=== PATIENT | female | born 1970 | race Caucasian/White ===

== ENCOUNTER → 2018-11-25 | Outpatient (CLI) | payer BC ==
--- NOTE | 2018-12-03 09:48 | MM ---
Reason for exam: screening (asymptomatic). Last mammogram was performed 1 year and 3 months ago. Physical Findings: A clinical breast exam by your physician is recommended on an annual basis and results should be correlated with mammographic findings. MG Screening Mammo w CAD Bilateral CC and MLO view(s) were taken. Prior study comparison: August 27, 2017, mammogram, performed at [place]. August 26, 2016, mammogram, performed at [place]. The breast tissue is heterogeneously dense. This may lower the sensitivity of mammography. New nodule upper outer right breast 6 cm from nipple. ASSESSMENT: Incomplete: need additional imaging evaluation, BI-RAD 0 RECOMMENDATION: Special view mammogram and ultrasound of the right breast. [facility] will attempt to contact patient to return for supplemental views and ultrasound.
== END | disposition home or self-care (01) ==
LOC: RADMAMWWP 09:23
PROVIDERS: ATTEND Family Medicine
DX: Z12.31 Encounter for screening mammogram for malignant neoplasm of breast (principal)
CPT/HCPCS: 77067

== ENCOUNTER → 2018-12-16 | Outpatient (CLI) | payer BC ==
--- NOTE | 2018-12-17 10:39 | MM ---
Reason for exam: additional evaluation requested from abnormal screening. Last mammogram was performed 1 month ago. Physical Findings: Nurse did not find any significant physical abnormalities on exam. MG Work Up Mamm w CAD RT CC and MLO view(s) were taken of the right breast. Prior study comparison: November 25, 2018, bilateral MG screening mammo w CAD. August 27, 2017, mammogram, performed at [place]. The breast tissue is heterogeneously dense. This may lower the sensitivity of mammography. 12 o'clock focal asymmetry partially disperses. Ultrasound recommended. These results were verbally communicated with the patient and result sheet given to the patient on 12/16/18. ASSESSMENT: Incomplete: need additional imaging evaluation, BI-RAD 0 RECOMMENDATION: Ultrasound of the right breast.
--- NOTE | 2018-12-17 10:40 | USB ---
Reason for exam: additional evaluation requested from abnormal screening. US Breast Workup Limited RT Right limited breast ultrasound including focal area of concern, retroareolar and axilla demonstrates a 0.2 x 0.2 x 0.3cm lesion too small to characterize at 2 o'clock, likely tiny cyst. Scanned 11-3 o'clock. No other solid or cystic lesion seen. These results were verbally communicated with the patient and result sheet given to the patient on 12/16/18. ASSESSMENT: Probably benign, BI-RAD 3 RECOMMENDATION: Follow-up diagnostic mammogram of the right breast in 6 months.
== END ==
LOC: RADMAMWWP 14:18
PROVIDERS: ATTEND Family Medicine
DX: R92.8 Other abnormal and inconclusive findings on diagnostic imaging of breast (principal)
CPT/HCPCS: 77065

== ENCOUNTER → 2021-05-13 | Outpatient (CLI) | payer BC ==
[2021-05-13 09:38] VITALS: BP 149/96; PULSE 93; RESP 18; TEMP 98
--- NOTE | 2021-05-13 09:44 | P.CONS ---
History of Present Illness - Reason for Consult Consult date: 05/13/21 - Chief Complaint Lower back and legs pain - History of Present Illness This is a 51-year-old lady with history of low back pain with radiation to the left knee level without paresthesia in the lower extremities. The patient had similar pain a few years ago for which she received lumbar epidural steroid injection which helped her significantly. She also received left greater trochanter bursa steroid injection previously. She has been complaining of this pain for about one year now as she states. The pain gets worse with standing or walking for too long. It improves by laying down in bed. 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 She denies any weakness in the lower extremities or any bowel or bladder dysfunction. Past Medical History Past Medical History: Hypertension Additional Past Medical History / Comment(s): BACK PAIN. SEASONAL ALLERGIES History of Any Multi-Drug Resistant Organisms: None Reported Past Surgical History: Bladder Surgery, Hernia Repair, Orthopedic Surgery Additional Past Surgical History / Comment(s): FUSION C5-C6. D & C. BLADDER SX X 2. BILAT KNEE SX. EPIDURAL SHOTS Past Anesthesia/Blood Transfusion Reactions: Postoperative Nausea & Vomiting (PONV) Past Psychological History: No Psychological Hx Reported Smoking Status: Never smoker Past Alcohol Use History: Rare Past Drug Use History: None Reported - Past Family History Mother Family Medical History: Deep Vein Thrombosis (DVT) Additional Family Medical History / Comment(s): SUPERFICIAL CLOT IN LEG Medications and Allergies Home Medications Medication Instructions Recorded Confirmed Type Ibuprofen [Motrin Ib] 600 - 800 mg PO DAILY PRN 05/08/21 05/08/21 History Loratadine [Claritin] 10 mg PO DAILY 05/08/21 05/08/21 History Losartan Potassium 100 mg PO DAILY 05/08/21 05/08/21 History Phentermine HCl 37.5 mg PO AC-BRKFST 05/08/21 05/08/21 History cloNIDine HCL 0.1 mg PO DAILY 05/08/21 05/08/21 History Allergies Allergy/AdvReac Type Severity Reaction Status Date / Time No Known Allergies Allergy Verified 05/08/21 12:50 Physical Exam - Constitutional General appearance: obese - EENT Eyes: PERRLA - Neurologic Neuro exam of the lower extremities showed normal and symmetrical muscle strength and normal and symmetrical knee reflex is but absent ankle reflex bilaterally. Straight leg raising test negative bilaterally. José Miguel's test is negative on the left side. Facet loading test is negative lumbar area Neurologic: CNII-XII intact - Psychiatric Psychiatric: A&O x's 3, appropriate affect, intact judgment & insight Results Results: The lumbar spine MRI showed severe stenosis at L3 4 and L4-L5 levels Assessment and Plan Plan: This is a 51-year-old lady with what seems to be severe lumbar stenosis at the L3 4 and L4 5 levels .her symptoms most likely is coming from the L3 4 level at this point since her pain starts of the left knee level. The patient may benefit from getting lumbar epidural steroid injection at the L3 4 level in the left paramedian approach under fluoroscopic guidance. The procedure was explained to the patient and she was agreeable to it. Patient prefers to have this procedure under local anesthesia only. I thank you for the referral
== END ==
LOC: PNWHC3 09:08
PROVIDERS: ATTEND Anesthesiology
DX: M48.061 Spinal stenosis, lumbar region without neurogenic claudication (principal); I10 Essential (primary) hypertension; Z79.899 Other long term (current) drug therapy
CPT/HCPCS: 99211

== ENCOUNTER 2021-07-02 06:18 | Day surgery (SDC) | payer BC ==
[2021-06-28 11:26] VITALS: BMI 27.4
[~2021-07-02 06:18] MED LIST: LACTATED RINGERS 1,000 ML IV SCH
[2021-07-02 06:39] VITALS: TEMP 97.2
[2021-07-02] MEDS ORDERED: IOPAMIDOL M200 10 ML VIAL ONE (06:49)
[2021-07-02] MEDS ORDERED: methylPREDNISolone ACETATE 40 MG/ML 1 ML VIAL ONE (06:49)
--- NOTE | 2021-07-02 07:05 | P.PCN ---
Date of Procedure: 07/02/21 Procedure(s) Performed: PREOPERATIVE DIAGNOSIS: 1- Lumbar Degenerative Disc Diseases 2-Lumbar spondylosis with Facet arthropathy without myelopathy. 3-lumbar spinal stenosis. POSTOPERATIVE DIAGNOSIS: Same as preop diagnosis. PROCEDURE 1. Lumbar epidural steroid injection under fluoroscopic guidance at the L3-4 level. (Fluoroscopy imaging was available in radiology department) 2. Lumbar epidurogram. ANESTHESIA: Local with 1% lidocaine 3 ml only. EBL: Minimal PROCEDURE INDICATION: The patient with low back pain and radiculitis symptoms unresponsive to conservative treatment. Fluoroscopy was used to optimize visualization of the needle placement and to maximize safety. PROCEDURE DESCRIPTION / TECHNIQUE: The patient was seen and identified in the preoperative area. Risks, benefits, complications including but not limited to infections ,bleeding ,allergic reac tion to the medications ,nerve damage and not complete pain releife , and alternatives were discussed with the patient. The patient agreed to proceed with the procedure and signed the consent,, and vital signs were stable. Patient was taken to the OR and time out was completed. The patient was placed in the prone position on procedure table and a pillow was placed under the abdomen to reduce lumbar lordosis. The lumbosacral area was prepped and draped in the usual sterile fashion.ere closely monitored during the procedure.. Vital signs was monitered during the entire procedure. Using anterior-posterior fluoroscopy, the L3-4 interlaminar space was identified and the skin over this site was marked and then infiltrated with 1% lidocaine subcutaneously. Subsequently, a 18-gauge Tuohy epidural needle was inserted and advanced toward the epidural space using the ``Loss of resistance technique and guided by AP and lateral fluoroscopy. The correct needle position in the epidural space was verified with the injection of 2 mL of the water soluble contrast dye Isovue 200 contrast and observing an excellent epidurogram with the epidural spread of the dye, after negative aspiration for blood and CSF and in the absence of paresthesias. Again after negative aspiration, a 6 ml mixture containing 80 mg of Depo-medrol , and 2 ml of preservative free Normal Saline, and 2 ml of preservative free lidocaine 1% solution was injected and a washout of epidurogram was seen. Needle was withdrawn intact, skin was cleansed, and bandages were applied. COMPLICATIONS: None DISPOSITION / PLANS: The patient was placed in a supine position and transferred to the recovery area in a stable condition for observation. There was no evidence of lower extremity motor or sensory deficit after the procedure. Patient was discharged from the recovery room after meeting discharge criteria. Home discharge instructions were given to the patient by the staff. The patient was reexamined prior to discharge. The patient will schedule a follow up in the clinic in 2-4 weeks.
[2021-07-02 07:27] VITALS: BP 145/85; PULSE 92; RESP 14
--- NOTE | 2021-07-02 08:09 | FL ---
EXAMINATION TYPE: FL guided pain mgmt statistic DATE OF EXAM: 07/02/2021 FLUOROSCOPY Fluoroscopy time of 5 seconds was used during lumbar epidural injection. 1 image/s document/s the pr chip.
== END 2021-07-02 07:36 | disposition home or self-care (01) ==
LOC: ORPAIN 06:18
PROVIDERS: ATTEND Specialist
DX: M47.816 Spondylosis without myelopathy or radiculopathy, lumbar region (principal); M48.061 Spinal stenosis, lumbar region without neurogenic claudication; M51.36 Other intervertebral disc degeneration, lumbar region
CPT/HCPCS: 62323; J1030; Q9966

== ENCOUNTER 2021-07-19 19:02 | Emergency (ER) | payer BC ==
--- NOTE | 2021-07-19 19:28 | ED ---
General Adult HPI - General Chief complaint: Arrhythmia/Palpitations Stated complaint: chest pain Time Seen by Provider: 07/19/21 19:08 Source: patient Mode of arrival: wheelchair Limitations: no limitations - History of Present Illness Initial comments: Dictation was produced using [employer] dictation software. please excuse any grammatical, word or spelling errors. Chief Complaint: 51-year-old female presents with palpitations and chest pain History of Present Illness: Patient is a 51-year-old female she presents to the emergency department for severe palpitations. 30 minutes prior to arrival she was taking the trash out. States that she all of a sudden felt intense palpitations and chest pain. Patient denies any cardiac history. She does have history of hypertension. States that her son has history of SVT. The ROS documented in this emergency department record has been reviewed and confirmed by me. Those systems with pertinent positive or negative responses have been documented in the HPI. All other systems are other negative and/or noncontributory. PHYSICAL EXAM: General Impression: Alert and oriented x3, distress secondary to palpitations. HEENT: Normocephalic atraumatic, extra-ocular movements intact, pupils equal and reactive to light bilaterally, mucous membranes moist. Cardiovascular: Tachycardic Chest: Able to complete full sentences, no retractions, no tachypnea Abdomen: abdomen soft, non-tender, non-distended, no organomegaly Musculoskeletal: Pulses present and equal in all extremities, no peripheral edema Motor: no focal deficits noted Neurological: CN II-XII grossly intact, no focal motor or sensory deficits noted Skin: Intact with no visualized rashes Psych: Anxious ED course: 51-year-old female presents to the emergency department for arrhythmia. Patient was seen and evaluated triage. Triage nurse noted that patient's heart rate was in the 200s. Vital signs upon arrival shows heart rate of 220, rest of vital signs within acceptable limits. She was rapidly placed in trauma bay #2. EKG was performed showing SVT with a rate of 218. Patient was given 6 mg of adenosine with successful conversion. Repeat EKG showed sinus tachycardia. Evaluation obtained. CBC unremarkable. Metabolic panel is within acceptable limits. Mild acidosis. Patient given fluids. Troponin TSH is normal. Coag panel is negative. Chest x-ray shows no acute processes. Patient observed in the emergency department found to be in stable medical condition upon reevaluation. Patient started on beta blockers given referral for cardiology. Return precautions discussed. EKG interpretation 19:14: Ventricular rate to 218, SVT, QRS 102, QTC 392. Old EKG for comparison. Repeat EKG performed after chemical cardioversion performed at 19:18 shows sinus tachycardia with a rate of 128 - Related Data Home Medications Medication Instructions Recorded Confirmed Loratadine [Claritin] 10 mg PO HS PRN 05/08/21 07/19/21 Losartan Potassium 100 mg PO DAILY 05/08/21 07/19/21 Liraglutide [Saxenda] 1.2 mg SQ DAILY 07/19/21 07/19/21 diphenhydrAMINE [Benadryl] 50 mg PO HS PRN 07/19/21 07/19/21 Previous Rx's Medication Instructions Recorded Metoprolol Tartrate [Lopressor] 50 mg PO BID 14 Days #28 tab 07/19/21 Allergies Allergy/AdvReac Type Severity Reaction Status Date / Time No Known Allergies Allergy Verified 07/19/21 20:32 Review of Systems ROS Statement: Those systems with pertinent positive or pertinent negative responses have been documented in the HPI. ROS Other: All systems not noted in ROS Statement are negative. Past Medical History Past Medical History: Hypertension Additional Past Medical History / Comment(s): BACK PAIN. SEASONAL ALLERGIES History of Any Multi-Drug Resistant Organisms: None Reported Past Surgical History: Bladder Surgery, Hernia Repair, Orthopedic Surgery Additional Past Surgical History / Comment(s): FUSION C5-C6. D & C. BLADDER SX X 2. BILAT KNEE SX. EPIDURAL SHOTS Past Anesthesia/Blood Transfusion Reactions: Postoperative Nausea & Vomiting (PONV) Past Psychological History: No Psychological Hx Reported Smoking Status: Never smoker - Past Family History Mother Family Medical History: Deep Vein Thrombosis (DVT) Additional Family Medical History / Comment(s): SUPERFICIAL CLOT IN LEG General Exam Limitations: no limitations Course Vital Signs 07/19/21 07/19/21 07/19/21 19:17 19:21 21:02 Temperature 97.8 F Pulse Rate 220 H 105 H 114 H Respiratory 20 20 19 Rate Blood Pressure 143/79 141/100 123/83 O2 Sat by Pulse 100 100 98 Oximetry Medical Decision Making - Lab Data Result diagrams: 07/19/21 19:20 07/19/21 19:20 Lab Results 07/19/21 07/19/21 07/19/21 Range/Units 19:20 19:20 19:20 WBC 10.5 (3.8-10.6) k/uL RBC 4.61 (3.80-5.40) m/uL Hgb 13.6 (11.4-16.0) gm/dL Hct 39.5 (34.0-46.0) % MCV 85.6 (80.0-100.0) fL MCH 29.6 (25.0-35.0) pg MCHC 34.6 (31.0-37.0) g/dL RDW 13.9 (11.5-15.5) % Plt Count 370 (150-450) k/uL MPV 6.7 Neutrophils % 62 % Lymphocytes % 30 % Monocytes % 5 % Eosinophils % 2 % Basophils % 1 % Neutrophils # 6.5 (1.3-7.7) k/uL Lymphocytes # 3.1 (1.0-4.8) k/uL Monocytes # 0.5 (0-1.0) k/uL Eosinophils # 0.2 (0-0.7) k/uL Basophils # 0.1 (0-0.2) k/uL PT 10.1 (9.0-12.0) sec INR 0.9 (<1.2) APTT 21.6 L (22.0-30.0) sec Sodium 138 (137-145) mmol/L Potassium 3.8 (3.5-5.1) mmol/L Chloride 104 (98-107) mmol/L Carbon Dioxide 19 L (22-30) mmol/L Anion Gap 15 mmol/L BUN 16 (7-17) mg/dL Creatinine 0.88 (0.52-1.04) mg/dL Est GFR (CKD-EPI)AfAm 89 (>60 ml/min/1.73 sqM) Est GFR (CKD-EPI)NonAf 77 (>60 ml/min/1.73 sqM) Glucose 153 H (74-99) mg/dL Calcium 9.4 (8.4-10.2) mg/dL Magnesium 2.0 (1.6-2.3) mg/dL Total Bilirubin 0.4 (0.2-1.3) mg/dL AST 23 (14-36) U/L ALT 20 (4-34) U/L Alkaline Phosphatase 76 (38-126) U/L Troponin I (0.000-0.034) ng/mL Total Protein 7.6 (6.3-8.2) g/dL Albumin 4.5 (3.5-5.0) g/dL TSH 0.918 (0.465-4.680) mIU/L 07/19/21 Range/Units 19:20 WBC (3.8-10.6) k/uL RBC (3.80-5.40) m/uL Hgb (11.4-16.0) gm/dL Hct (34.0-46.0) % MCV (80.0-100.0) fL MCH (25.0-35.0) pg MCHC (31.0-37.0) g/dL RDW (11.5-15.5) % Plt Count (150-450) k/uL MPV Neutrophils % % Lymphocytes % % Monocytes % % Eosinophils % % Basophils % % Neutrophils # (1.3-7.7) k/uL Lymphocytes # (1.0-4.8) k/uL Monocytes # (0-1.0) k/uL Eosinophils # (0-0.7) k/uL Basophils # (0-0.2) k/uL PT (9.0-12.0) sec INR (<1.2) APTT (22.0-30.0) sec Sodium (137-145) mmol/L Potassium (3.5-5.1) mmol/L Chloride (98-107) mmol/L Carbon Dioxide (22-30) mmol/L Anion Gap mmol/L BUN (7-17) mg/dL Creatinine (0.52-1.04) mg/dL Est GFR (CKD-EPI)AfAm (>60 ml/min/1.73 sqM) Est GFR (CKD-EPI)NonAf (>60 ml/min/1.73 sqM) Glucose (74-99) mg/dL Calcium (8.4-10.2) mg/dL Magnesium (1.6-2.3) mg/dL Total Bilirubin (0.2-1.3) mg/dL AST (14-36) U/L ALT (4-34) U/L Alkaline Phosphatase (38-126) U/L Troponin I <0.012 (0.000-0.034) ng/mL Total Protein (6.3-8.2) g/dL Albumin (3.5-5.0) g/dL TSH (0.465-4.680) mIU/L Critical Care Time Critical Care Time: Yes Total Critical Care Time: 33 Disposition Clinical Impression: SVT (supraventricular tachycardia) Disposition: HOME SELF-CARE Condition: Fair Instructions (If sedation given, give patient instructions): Supraventricular Tachycardia (ED) Prescriptions: Metoprolol Tartrate [Lopressor] 50 mg PO BID 14 Days #28 tab Is patient prescribed a controlled substance at d/c from ED?: No Referrals: Tyler Ceballos DO [STAFF PHYSICIAN] - 1-2 days
[2021-07-19 19:33] LABS: Basophils # (A) 0.1 k/uL (0-0.2); Basophils % (A) 1 %; Eosinophils # (A) 0.2 k/uL (0-0.7); Eosinophils % (A) 2 %; HCT 39.5 % (34.0-46.0); HGB 13.6 gm/dL (11.4-16.0); Lymphocytes # (A) 3.1 k/uL (1.0-4.8); Lymphocytes % (A) 30 %; MCH 29.6 pg (25.0-35.0); MCHC 34.6 g/dL (31.0-37.0); MCV 85.6 fL (80.0-100.0); Mean Platelet Volume 6.7; Monocytes # (A) 0.5 k/uL (0-1.0); Monocytes % (A) 5 %; Neutrophils # (A) 6.5 k/uL (1.3-7.7); Neutrophils % (A) 62 %; Platelet Count 370 k/uL (150-450); RBC 4.61 m/uL (3.80-5.40); RDW 13.9 % (11.5-15.5); WBC 10.5 k/uL (3.8-10.6)
[2021-07-19 19:50] LABS: Albumin 4.5 g/dL (3.5-5.0); Calcium 9.4 mg/dL (8.4-10.2); Potassium 3.8 mmol/L (3.5-5.1); Total Bilirubin 0.4 mg/dL (0.2-1.3); Total Protein 7.6 g/dL (6.3-8.2)
[2021-07-19 19:55] LABS: INR 0.9 (<1.2); Prothrombin Time 10.1 sec (9.0-12.0)
--- NOTE | 2021-07-19 19:59 | XR ---
EXAMINATION TYPE: XR chest 1V portable DATE OF EXAM: 07/19/2021 COMPARISON: NONE HISTORY: Tachycardia. Chest pain TECHNIQUE: Single view FINDINGS: Heart and mediastinum are normal. Lungs are clear. Diaphragm is normal. Bony thorax is inta ct. IMPRESSION: Normal chest.
[2021-07-19 20:01] LABS: Partial Thromboplastin Time 21.6 sec (22.0-30.0)
[2021-07-19] MEDS ORDERED: METOPROLOL TARTRATE 50 MG TAB PO STA (20:32)
[2021-07-19 21:03] VITALS: RESP 19
[2021-07-19 22:20] VITALS: BP 123/80; PULSE 97; TEMP 97.9
== END 2021-07-19 22:20 | disposition home or self-care (01) ==
LOC: EC 19:02
DX: I47.1 Supraventricular tachycardia (principal); I10 Essential (primary) hypertension
CPT/HCPCS: 36415; 71045; 80053; 83735; 84443; 84484; 85025; 85610; 85730; 93005; 99291

== ENCOUNTER 2021-08-20 06:15 | Day surgery (SDC) | payer BC ==
[2021-08-15 09:03] VITALS: BMI 26.2
[2021-08-20 06:39] VITALS: RESP 16; TEMP 97.4
[2021-08-20] MEDS ORDERED: IOPAMIDOL M200 10 ML VIAL ONE (07:07)
[2021-08-20] MEDS ORDERED: methylPREDNISolone ACETATE 80 MG/ML 1 ML VIAL ONE (07:07)
[2021-08-20] MEDS ORDERED: LACTATED RINGERS 1,000 ML IV SCH (07:15)
--- NOTE | 2021-08-20 07:18 | P.PCN ---
Date of Procedure: 08/20/21 Description of Procedure: Procedure: 1. Left side L3-L4 Epidural steroid injection under fluoroscopic guidance # 1 , 2. Lumbar epidurogram PREOPERATIVE DIAGNOSIS: Lumbar degenerative disc disease, and Lumbar radiculopathy. POSTOPERATIVE DIAGNOSIS: Lumbar degenerative disc disease, and Lumbar radiculopathy. SURGEON: Lizzie Diamond ANESTHESIA: Local with 1% lidocaine, and IV sedation ; none EBL: None. Specimen removed: None Fluoroscopic image: saved to electronic medical records PROCEDURE INDICATION: The patient had history of Lumbar degenerative disc disease and Lumbar radiculopathy. Patient had more than 80% pain relief with the previous epidural steroid injection for more than 3 weeks duration. Failed to conservative therapy. Presented for repeat epidural steroid injection. PROCEDURE DESCRIPTION: The patient was seen and identified in the preoperative area. Risks, benefits, complications, and alternatives were discussed with the patient. The patient agreed to proceed with the procedure and signed the consent. IV was started, and vital signs were stable. Patient was taken to the procedure area, and time out was completed. The patient was placed in the prone position on procedure table and a pillow was placed under the abdomen to reduce lumbar lordosis. The lumbosacral area was prepped and draped in the usual sterile fashion. Critical pause was taken. Vital signs were closely monitored during the procedure. Using anterior-posterior fluoroscopy, the L3-L4 interlaminar space was identified, and skin and deeper tissues were localized with 1% lidocaine. Using anterior-posterior fluoroscopy, lateral fluoroscopy, and [id number] technique, a 20 gauge 3.5 Tuohy epidural needle entered the epidural space. After negative aspiration of CSF and blood with no paresthesias, 2 ml of [id number] contrast dye was injected and an excellent epidurogram was seen. Again after negative aspiration of CSF and blood with no paresthesias, 10 mL of block solution was injected into the epidural space. Block solution contained 80 mg of Depo-Medrol, and 9 mL of preservative-free normal saline. Needle was withdrawn intact, skin was cleansed, and bandages were applied. COMPLICATIONS: None. DISPOSITION / PLANS: The patient was placed in a supine position and transferred to the recovery area in a stable condition for observation. Patient was discharged from the recovery room after meeting discharge criteria. Home discharge instructions given to the patient by the staff. The patient was reexamined prior to discharge. The patient will schedule a follow up in the clinic in 4 weeks.
[2021-08-20 07:38] VITALS: BP 149/93; PULSE 88
--- NOTE | 2021-08-20 08:06 | FL ---
Fluoroscopy History: Lumbar epidural injection lumbar epidural steroid injection. 6 sec fl. 3 images sent.
== END 2021-08-20 07:48 | disposition home or self-care (01) ==
LOC: ORPAIN 06:15
DX: M48.061 Spinal stenosis, lumbar region without neurogenic claudication (principal); M54.50 Low back pain, unspecified; M51.16 Intervertebral disc disorders with radiculopathy, lumbar region; Z78.0 Asymptomatic menopausal state
CPT/HCPCS: 62323

== ENCOUNTER 2022-01-24 08:32 | Day surgery (SDC) | payer BC ==
[2022-01-22 15:53] VITALS: BMI 27.4
[2022-01-24 09:09] VITALS: TEMP 97.6
[2022-01-24] MEDS ORDERED: PROPOFOL 10 MG/ML 20 ML VIAL IV ONE (10:00)
[2022-01-24] MEDS ORDERED: LIDOCAINE 2% INJ 20 MG/ML (2 ML VIAL) ONE (10:00)
--- NOTE | 2022-01-24 10:25 | P.PCN ---
Date of Procedure: 01/24/22 Procedure(s) Performed: BRIEF HISTORY: Patient is a 51-year-old pleasant white female scheduled for an elective colonoscopy as a part of screening for colorectal neoplasia. PROCEDURE PERFORMED: Colonoscopy With snare polypectomy. PREOPERATIVE DIAGNOSIS:Screening for colon cancer. IV sedation per Anesthesia. PROCEDURE: After informed consent was obtained, the patient, was brought into the endoscopy unit. IV sedation was administered by Anesthesia under continuous monitoring. Digital rectal examination was normal. Initially the Olympus CF-160 flexible video colonoscope was then inserted in the rectum, gradually advanced into the cecum without any difficulty. Careful examination was performed as the scope was gradually being withdrawn. Ileocecal valve and the appendiceal orifice were visualized and appeared normal. Prep was excellent. Mucosa of the cecum, appeared normal in the ascending colon there was a 7 mm polyp that was removed by snare polypectomy. Rest of the ascending colon, transverse colon, descending colon, sigmoid colon, and rectum appeared normal. in the proximal rectum there was a 3 mm 2 polyps removed by snare polypectomy. Retroflexion was performed in the rectum and no lesions were seen. The patient tolerated the procedure well. IMPRESSION: 7 mm ascending colon polyp status post polypectomy 3 mm 2 rectal polyps status post polypectomy RECOMMENDATIONS: Findings of this examination were discussed with the patientas well his family. She was advised to follow with the biopsy results. If the biopsies adenoma she can have a repeat colonoscopy in 5 years].
[2022-01-24 10:50] VITALS: BP 135/88; PULSE 79; RESP 16
== END 2022-01-24 11:02 | disposition home or self-care (01) ==
LOC: ORWHC2ENDO 08:32
PROVIDERS: ATTEND Internal Medicine Gastroenterology
DX: Z12.11 Encounter for screening for malignant neoplasm of colon (principal); D12.2 Benign neoplasm of ascending colon; D12.8 Benign neoplasm of rectum; E11.9 Type 2 diabetes mellitus without complications; Z78.0 Asymptomatic menopausal state; Z98.1 Arthrodesis status; Z98.890 Other specified postprocedural states; Z79.899 Other long term (current) drug therapy
CPT/HCPCS: 88305; 45385; J2704; J2001

== ENCOUNTER → 2022-12-04 | Outpatient (CLI) | payer BC ==
--- NOTE | 2022-12-05 08:11 | MM ---
Reason for Exam: Screening (asymptomatic). Last mammogram was performed 4 year(s) and 0 month(s) ago. Patient History: Menarche at age 13. First Full-Term at age 25. Postmenopausal. Risk Values: Corin 5 year model risk: 0.9%. NCI Lifetime model risk: 7.9%. Prior Study Comparison: 08/27/2017 Screening Mammogram, [place]. 11/25/2018 Bilateral Screening Mammogram, [facility]. 12/16/2018 Right Diagnostic Mammogram, [facility]. Tissue Density: The breast tissue is heterogeneously dense. This may lower the sensitivity of mammography. Findings: Analyzed By CAD. There is no suspicious group of microcalcifications or architectural distortion within either breast. Asymmetry demonstrated within the central left breast middle depth only on the CC view. Overall Assessment: Incomplete: need additional imaging evaluation, BI-RAD 0 Management: Diagnostic Mammogram of the left breast. A clinical breast exam by your physician is recommended on an annual basis and results should be correlated with mammographic findings. [facility] will attempt to contact patient to return for supplemental views and ultrasound if indicated. Electronically signed and approved by: Rodriugez Goldman D.O.
== END | disposition home or self-care (01) ==
LOC: RADMAMWWP 07:33
PROVIDERS: ATTEND Family Medicine
DX: Z12.31 Encounter for screening mammogram for malignant neoplasm of breast (principal); Z78.0 Asymptomatic menopausal state
CPT/HCPCS: 77067

== ENCOUNTER → 2022-12-09 | Outpatient (CLI) | payer BC ==
--- NOTE | 2022-12-09 08:11 | MM ---
Reason for Exam: Additional evaluation requested from abnormal screening. Last screening mammogram was performed less than 1 month ago. Patient History: Menarche at age 13. First Full-Term at age 25. Postmenopausal. Risk Values: Corin 5 year model risk: 0.9%. NCI Lifetime model risk: 7.9%. Prior Study Comparison: 11/25/2018 Bilateral Screening Mammogram, [facility]. 12/16/2018 Right Diagnostic Mammogram, [facility]. 12/04/2022 Bilateral MG screening mammo w CAD, [facility]. Tissue Density: Left: The breast tissue is heterogeneously dense. This may lower the sensitivity of mammography. Findings: Analyzed By CAD. No distinct lesion persists on additional views. Overall Assessment: Negative, BI-RAD 1 Management: Screening Mammogram of both breasts in 1 year. Return to routine follow-up. Results were given to the patient verbally at the time of exam. Electronically signed and approved by: Barry Arreguin M.D.
== END | disposition home or self-care (01) ==
LOC: RADMAMWWP 07:31
PROVIDERS: ATTEND Family Medicine
DX: R92.8 Other abnormal and inconclusive findings on diagnostic imaging of breast (principal); Z78.0 Asymptomatic menopausal state
CPT/HCPCS: 77065

== ENCOUNTER → 2023-07-29 | Outpatient (CLI) | payer BC ==
--- NOTE | 2023-08-05 05:13 | SLS ---
SLEEP STUDY STUDY PERFORMED: This is a home sleep study. PERSONAL HISTORY: This is a 53-year-old female patient presented to me due to concerns of sleep apnea. The patient has loud snoring, chronic fatigue and some degree of sleepiness with an Whitman score of 8. She has had 2 previous episodes of SVT. She had around 20 pounds of weight gain over the past 2 years. Her body mass index was around 30. She had a Mallampati class 4. Sleep apnea was suspected. PERTINENT PHYSICAL FINDINGS: The patient's height is 5 feet 3 inches, weight is 179, and the body mass index is 30.8. TECHNICAL DESCRIPTION: The [employer] system was used to complete the home sleep study. This is a type 3 home sleep study. The total recording duration was 7 hours and 50 minutes. The study started at 10:08 p.m. and the study ended at 5:59 a.m. This was an adequate study as the patient had a total of 6 hours and 36 minutes of flow evaluation and 7 hours and 38 minutes of oxygen saturation evaluation. RESULTS: Respiratory analysis showed a total of 188 obstructive apneas and 60 obstructive hypopneas. The resulting AHI was 37.5, consistent with severe obstructive sleep apnea. OXYGENATION ANALYSIS: The baseline pulse ox was 97%, average pulse ox at night was 93%. Minimum pulse ox was 70% and the patient spent approximately 1 hour 11 minutes of sleep time below pulse ox of 89%. CARDIAC SUMMARY: Average heart rate was 75, minimum heart rate 55, maximum heart rate was 215. IMPRESSION: 1. Severe obstructive sleep apnea with an AHI of 37.5. 2. Nocturnal oxygen desaturation with a minimum pulse ox of 70%. 3. Obesity with a body mass index of 30. 4. Chronic hypersomnia, Whitman score of 8. 5. History of SVT x2. PLAN: Obviously, the patient has significant obstructive sleep apnea with nocturnal oxygen desaturation and she needs to be treated. I am recommending an in-lab CPAP titration for this patient and following that she will proceed with CPAP therapy. This will be discussed with the patient. She will be also encouraged to lose weight, maintain regular sleep hygiene measures, maintain a regular sleep schedule. We will continue to follow. MMODL / IJN: [id number] /
== END ==
LOC: 3 N SLEEP 10:50
PROVIDERS: ATTEND Internal Medicine Critical Care Medicine
DX: G47.33 Obstructive sleep apnea (adult) (pediatric) (principal); G47.10 Hypersomnia, unspecified; G47.36 Sleep related hypoventilation in conditions classified elsewhere; E66.9 Obesity, unspecified; Z68.30 Body mass index [BMI] 30.0-30.9, adult; Z86.79 Personal history of other diseases of the circulatory system

== ENCOUNTER 2023-08-14 11:52 | Observation (INO) | payer BC ==
--- NOTE | 2023-08-14 12:28 | ED ---
Abdominal Pain HPI - General Source: patient, RN notes reviewed Mode of arrival: ambulatory Limitations: no limitations <Miko Garsia - Last Filed: 08/14/23 12:25> <Danielle Tobias - Last Filed: 08/14/23 17:32> - General Chief Complaint: Abdominal Pain Stated Complaint: abd pain Time Seen by Provider: 08/14/23 12:25 - History of Present Illness Initial Comments: 53-year-old female presents emergency Department chief complaint abdominal pain, fever, just not feeling well. Patient states that she has been sick also has a last month including recurrent UTIs, COVID-19, upper story symptoms. Patient states she has left lower quadrant abdominal pain she is concerned something else may be going on. Patient reports fever, chills. (Miko Garsia) Note reviewed: This is a pleasant 53-year-old female with no significant past medical history presents to the emergency department with a chief complaint of abdominal pain and fever. She reports that she has been sick intermittently over the last 2 months. She reports recurrent UTIs recent COVID- 19 infection and upper respiratory symptoms. She reports that she has had sudden onset left lower quadrant abdominal pain that woke her up from sleep last night. She denies, vomiting, hematemesis, melena, hematochezia. Patient is currently on levofloxacin and prednisone for UTI. (Danielle Tobias) - Related Data Home Medications Medication Instructions Recorded Confirmed Losartan Potassium 100 mg PO DAILY 05/08/21 08/14/23 Albuterol Sulfate [Albuterol 1 - 2 puff PO RT-Q6H PRN 08/14/23 08/14/23 Sulfate Hfa] Fexofenadine HCl [Jeny Allergy] 180 mg PO HS 08/14/23 08/14/23 Levofloxacin [Levaquin] 500 mg PO DAILY 08/14/23 08/14/23 Montelukast [Singulair] 10 mg PO HS 08/14/23 08/14/23 predniSONE See Taper PO DIRECTED 08/14/23 08/14/23 Allergies Allergy/AdvReac Type Severity Reaction Status Date / Time No Known Allergies Allergy Verified 08/14/23 15:09 Review of Systems ROS Other: All systems not noted in ROS Statement are negative. <Miko Garsia - Last Filed: 08/14/23 12:25> ROS Other: All systems not noted in ROS Statement are negative. <Danielle Tobias - Last Filed: 08/14/23 17:32> ROS Statement: Those systems with pertinent positive or pertinent negative responses have been documented in the HPI. Past Medical History Past Medical History: GERD/Reflux, Hypertension, Musculoskeletal Disorder Additional Past Medical History / Comment(s): Back pain, disc issues. Occ GERD. Seasonal allergies.SVT History of Any Multi-Drug Resistant Organisms: None Reported Past Surgical History: Bladder Surgery, Hernia Repair, Orthopedic Surgery Additional Past Surgical History / Comment(s): Cervical FUSION C5-C6. D & C. BLADDER SX X 2. BILAT KNEE SX. EPIDURAL Injections Past Anesthesia/Blood Transfusion Reactions: Motion Sickness, Postoperative Nausea & Vomiting (PONV) Past Psychological History: No Psychological Hx Reported Smoking Status: Never smoker Past Alcohol Use History: None Reported Past Drug Use History: None Reported - Past Family History Mother Family Medical History: Deep Vein Thrombosis (DVT) Additional Family Medical History / Comment(s): SUPERFICIAL CLOT IN LEG. (Maternal grandmother had colon cancer) <Miko Garsia - Last Filed: 08/14/23 12:25> General Exam Limitations: no limitations <Miko Garsia - Last Filed: 08/14/23 12:25> <Danielle Tobias - Last Filed: 08/14/23 17:32> - General Exam Comments Initial Comments: Visual Physical Exam Vital signs reviewed General: Well-appearing, nontoxic, no acute distress. Head: Normocephalic, atraumatic Eyes: PERRLA, EOMI ENT: Airway patent Chest: Nonlabored breathing Skin: No visual rash, normal skin tone Neuro: Alert and oriented 3 Musculoskeletal: No gross abnormalities (Miko Garsia) General: Alert, in no acute distress Head: atraumatic normocephalic. Eyes PERRL, EOMI intact, mucous membranes moist Respiratory: Lungs clear to auscultation bilaterally Cardiovascular: Rate regular rate and rhythm Abdominal: Soft without guarding or rebound, lower quadrant abdominal tenderness Extremities: Normal inspection with full range of motion and normal capillary refill Neuroogic: alert and oriented 3, CN II-XII intact, able to ambulate with steady gait Skin: warm dry and intact with normal color (Danielle Tobias) Course <Danielle Tobias - Last Filed: 08/14/23 17:32> Vital Signs 08/14/23 08/14/23 11:55 16:47 Temperature 99 F 98.4 F Pulse Rate 120 H 105 H Respiratory 20 18 Rate Blood Pressure 183/98 134/86 O2 Sat by Pulse 99 98 Oximetry - Reevaluation(s) Reevaluation #1: 08/14/23 13:07 history and physical exam performed. Patient resting comfortably. Agreeable with the plan for blood work and CAT scan. (Danielle Tobias) Reevaluation #2: 08/14/23 14:35 Pt reevaluated and updated on results. (Danielle Tobias) Reevaluation #3: 08/14/23 15:[address] Charles, [facility] who agrees with POC (Danielle Tobias) Medical Decision Making <Miko Garsia - Last Filed: 08/14/23 12:25> - Lab Data Result diagrams: 08/14/23 11:58 08/14/23 11:58 <Danielle Tobias - Last Filed: 08/14/23 17:32> - Medical Decision Making I completed the quick note portion of this chart signed Miko Garsia PA-C (Miko Garsia) Was pt. sent in by a medical professional or institution (KATIA White, [employer], urgent care, hospital, or halfway...) When possible be specific @ -[No] Did you speak to anyone other than the patient for history (EMS, parent, family, police, friend...)? What history was obtained from this source @ -[No] Did you review nursing and triage notes (agree or disagree)? Why? @ -[I reviewed and agree with nursing and triage notes] Were old charts reviewed (outside hosp., previous admission, EMS record, old EKG, old radiological studies, urgent care reports/EKG's, halfway records)? Report findings @ -[No old charts were reviewed] Differential Diagnosis (chest pain, altered mental status, abdominal pain women, abdominal pain men, vaginal bleeding, weakness, fever, dyspnea, syncope, headache, dizziness, GI bleed, back pain, seizure, CVA, palpatations, mental health, musculoskeletal)? @ -[not applicable] EKG interpreted by me (3pts min.). @ -[As above] X-rays interpreted by me (1pt min.). @ -[None done] CT interpreted by me (1pt min.). @ -CT abdomen reveals diverticulitis in descending colon without evidence of abscess or perforation U/S interpreted by me (1pt. min.). @ -[None done] What testing was considered but not performed or refused? (CT, X-rays, U/S, labs)? Why? @ -[None] What meds were considered but not given or refused? Why? @ -[None] Did you discuss the management of the patient with other professionals (professionals i.e. , PA, [employer], lab, RT, psych nurse, social media assistant, veneer redrier, teacher, district fire management officer, case mgr)? Give summary @ -Case discussed with Dr. Fay [facility] who agrees and accepts the patient for admission with consult to surgery Was smoking cessation discussed for >3mins.? @ -[No] Was critical care preformed (if so, how long)? @ -[No] Were there social determinants of health that impacted care today? How? (Homelessness, low income, unemployed, alcoholism, drug addiction, transportation, low edu. Level, literacy, decrease access to med. care, fpc, rehab)? @ -[No] Was there de-escalation of care discussed even if they declined (Discuss DNR or withdrawal of care, Hospice)? DNR status @ -[No] What co-morbidities impacted this encounter? (DM, HTN, Smoking, COPD, CAD, Cancer, CVA, ARF, Chemo, Hep., AIDS, mental health diagnosis, sleep apnea, morbid obesity)? @ -[None] Was patient admitted / discharged? Hospital course, mention meds given and route, prescriptions, significant lab abnormalities, going to OR and other pertinent info. @ -Admission. This is a pleasant 53-year-old female who presents the emergency department with abdominal pain. Patient's vital signs are stable upon evaluation, with tachycardia. Patient afebrile. Patient mildly tender in the left lower quadrant. Otherwise benign abdominal exam. Patient left her studies that revealed WBC 19.7, lactic acid 1.6 urinalysis negative. Patient CAT scan results reveal diverticulitis without evidence of abscess or perforation. I discussed results in detail with the patient verbalized understanding and all questions were addressed. Considering patient is already on outpatient antibiotics it is my decision to admit. She is agreeable with the plan for admission. Case is discussed with Dr. Fay [facility] who accepts. Patient will be started on IV Rocephin and Flagyl. Undiagnosed new problem with uncertain prognosis? @ -[No] Drug Therapy requiring intensive monitoring for toxicity (Heparin, Nitro, Insulin, Cardizem)? @ -[No] Were any procedures done? @ -[No] Diagnosis/symptom? - Diverticulitis - Leukocytosis @ Left Lower Quadrant Abdominal Pain Acute, or Chronic, or Acute on Chronic? @ -Acute Uncomplicated (without systemic symptoms) or Complicated (systemic symptoms)? @ -Complicated Side effects of treatment? @ -[No] Exacerbation, Progression, or Severe Exacerbation? @ -[No] Poses a threat to life or bodily function? How? (Chest pain, [place], [place], pneumonia, PE, COPD, DKA, ARF, appy, cholecystitis, CVA, Diverticulitis, Homicidal, Suicidal, threat to staff... and all critical care pts) @ -Yes, Diverticulitis (Danielle Tobias) - Lab Data Lab Results 08/14/23 08/14/23 08/14/23 Range/Units 11:58 11:58 12:20 WBC 19.7 H (3.8-10.6) k/uL RBC 4.84 (3.80-5.40) m/uL Hgb 14.4 (11.4-16.0) gm/dL Hct 41.7 (34.0-46.0) % MCV 86.3 (80.0-100.0) fL MCH 29.7 (25.0-35.0) pg MCHC 34.4 (31.0-37.0) g/dL RDW 13.5 (11.5-15.5) % Plt Count 400 (150-450) k/uL MPV 6.8 Neutrophils % 86 % Lymphocytes % 9 % Monocytes % 4 % Eosinophils % 0 % Basophils % 0 % Neutrophils # 17.0 H (1.3-7.7) k/uL Lymphocytes # 1.7 (1.0-4.8) k/uL Monocytes # 0.7 (0-1.0) k/uL Eosinophils # 0.1 (0-0.7) k/uL Basophils # 0.1 (0-0.2) k/uL Sodium 137 (137-145) mmol/L Potassium 4.1 (3.5-5.1) mmol/L Chloride 100 (98-107) mmol/L Carbon Dioxide 24 (22-30) mmol/L Anion Gap 13 mmol/L BUN 14 (7-17) mg/dL Creatinine 0.65 (0.52-1.04) mg/dL Est GFR (CKD-EPI)AfAm >90 (>60 ml/min/1.73 sqM) Est GFR (CKD-EPI)NonAf >90 (>60 ml/min/1.73 sqM) Glucose 118 H (74-99) mg/dL Plasma Lactic Acid Go (0.7-2.0) mmol/L Calcium 9.7 (8.4-10.2) mg/dL Total Bilirubin 0.8 (0.2-1.3) mg/dL AST 19 (14-36) U/L ALT 30 (4-34) U/L Alkaline Phosphatase 91 (38-126) U/L Total Protein 7.5 (6.3-8.2) g/dL Albumin 4.5 (3.5-5.0) g/dL Amylase 60 (30-110) U/L Lipase 106 (23-300) U/L Urine Color Colorless Urine Appearance Clear (Clear) Urine pH 6.5 (5.0-8.0) Ur Specific [place]ocker 1.005 (1.001-1.035) Urine Protein Negative (Negative) Urine Glucose (UA) Negative (Negative) Urine Ketones Negative (Negative) Urine Blood Moderate H (Negative) Urine Nitrite Negative (Negative) Urine Bilirubin Negative (Negative) Urine Urobilinogen <2.0 (<2.0) mg/dL Ur Leukocyte Esterase Negative (Negative) Urine RBC 9 H (0-5) /hpf Urine WBC 1 (0-5) /hpf Ur Squamous Epith Cells <1 (0-4) /hpf 08/14/23 Range/Units 13:26 WBC (3.8-10.6) k/uL RBC (3.80-5.40) m/uL Hgb (11.4-16.0) gm/dL Hct (34.0-46.0) % MCV (80.0-100.0) fL MCH (25.0-35.0) pg MCHC (31.0-37.0) g/dL RDW (11.5-15.5) % Plt Count (150-450) k/uL MPV Neutrophils % % Lymphocytes % % Monocytes % % Eosinophils % % Basophils % % Neutrophils # (1.3-7.7) k/uL Lymphocytes # (1.0-4.8) k/uL Monocytes # (0-1.0) k/uL Eosinophils # (0-0.7) k/uL Basophils # (0-0.2) k/uL Sodium (137-145) mmol/L Potassium (3.5-5.1) mmol/L Chloride (98-107) mmol/L Carbon Dioxide (22-30) mmol/L Anion Gap mmol/L BUN (7-17) mg/dL Creatinine (0.52-1.04) mg/dL Est GFR (CKD-EPI)AfAm (>60 ml/min/1.73 sqM) Est GFR (CKD-EPI)NonAf (>60 ml/min/1.73 sqM) Glucose (74-99) mg/dL Plasma Lactic Acid Go 1.6 (0.7-2.0) mmol/L Calcium (8.4-10.2) mg/dL Total Bilirubin (0.2-1.3) mg/dL AST (14-36) U/L ALT (4-34) U/L Alkaline Phosphatase (38-126) U/L Total Protein (6.3-8.2) g/dL Albumin (3.5-5.0) g/dL Amylase (30-110) U/L Lipase (23-300) U/L Urine Color Urine Appearance (Clear) Urine pH (5.0-8.0) Ur Specific [place] (1.001-1.035) Urine Protein (Negative) Urine Glucose (UA) (Negative) Urine Ketones (Negative) Urine Blood (Negative) Urine Nitrite (Negative) Urine Bilirubin (Negative) Urine Urobilinogen (<2.0) mg/dL Ur Leukocyte Esterase (Negative) Urine RBC (0-5) /hpf Urine WBC (0-5) /hpf Ur Squamous Epith Cells (0-4) /hpf Disposition <Dedoe,Miko M - Last Filed: 08/14/23 12:25> Is patient prescribed a controlled substance at d/c from ED?: No Time of Disposition: 14:39 <Danielle Tobias - Last Filed: 08/14/23 17:32> Clinical Impression: Diverticulitis, Leukocytosis Disposition: ADMITTED IP TO THIS HOSP Condition: Fair
[2023-08-14 12:31] LABS: Basophils # (A) 0.1 k/uL (0-0.2); Basophils % (A) 0 %; Eosinophils # (A) 0.1 k/uL (0-0.7); Eosinophils % (A) 0 %; HCT 41.7 % (34.0-46.0); HGB 14.4 gm/dL (11.4-16.0); Lymphocytes # (A) 1.7 k/uL (1.0-4.8); Lymphocytes % (A) 9 %; MCH 29.7 pg (25.0-35.0); MCHC 34.4 g/dL (31.0-37.0); MCV 86.3 fL (80.0-100.0); Mean Platelet Volume 6.8; Monocytes # (A) 0.7 k/uL (0-1.0); Monocytes % (A) 4 %; Neutrophils % (A) 86 %; Platelet Count 400 k/uL (150-450); RBC 4.84 m/uL (3.80-5.40); RDW 13.5 % (11.5-15.5); WBC 19.7 k/uL (3.8-10.6)
[2023-08-14 12:44] LABS: Appearance,Urine Clear (Clear); Bilirubin,Urine Negative (Negative); Blood,Urine Moderate (Negative); Color,Urine Colorless; Glucose,Urine (UA) Negative (Negative); Ketones,Urine Negative (Negative); Leukocyte Esterase,Urine Negative (Negative); Nitrite,Urine Negative (Negative); PH, Urine 6.5 (5.0-8.0); Protein,Urine Negative (Negative); RBC,Urine 9 /hpf (0-5); Specific Gravity,Urine 1.005 (1.001-1.035); Squamous Epithelial Cell,Urine <1 /hpf (0-4); Urobilinogen,Urine <2.0 mg/dL (<2.0); WBC,Urine 1 /hpf (0-5)
[2023-08-14 13:01] LABS: ALT 30 U/L (4-34); AST 19 U/L (14-36); African American GFR (CKD) >90 (>60 ml/min/1.73 sqM); Albumin 4.5 g/dL (3.5-5.0); Alkaline Phosphatase 91 U/L (38-126); Amylase 60 U/L (30-110); Anion Gap 13 mmol/L; Blood Urea Nitrogen 14 mg/dL (7-17); Calcium 9.7 mg/dL (8.4-10.2); Carbon Dioxide 24 mmol/L (22-30); Chloride 100 mmol/L (98-107); Glucose 118 mg/dL (74-99); Lipase 106 U/L (23-300); Non-African American GFR(CKD) >90 (>60 ml/min/1.73 sqM); Potassium 4.1 mmol/L (3.5-5.1); Sodium 137 mmol/L (137-145); Total Bilirubin 0.8 mg/dL (0.2-1.3); Total Protein 7.5 g/dL (6.3-8.2)
[2023-08-14] MEDS ORDERED: SODIUM CHLORIDE 0.9% 1,000 ML IV ONE (14:10)
[2023-08-14] MEDS ORDERED: KETOROLAC 15 MG/ML 1 ML VIAL IVP STA (14:10)
--- NOTE | 2023-08-14 14:14 | CT ---
EXAMINATION: CT ABDOMEN AND PELVIS WITH IV CONTRAST DATE OF EXAMINATION: 08/14/2023. COMPARISON: None available. INDICATION: Left lower quadrant pain. PROCEDURE: Axial CT of the abdomen and pelvis was performed with contrast and sagittal and coronal reformatted images were performed. CT dose lowering techniques were used, to include: automated expos ure control, adjustment for patient size, and/or use of iterative reconstruction. 100 mL of Isovue-37 0 was given intravenously. FINDINGS: LOWER CHEST : The visualized lung bases are clear. There are no pleural or pericardial effusions. ABDOMEN: Liver and Biliary system: Normal. Adrenal glands: Normal. Kidneys and ureters: There is a 2 mm nonobstructing stone in the upper pole of the right kidney. The kidneys and ureters otherwise appear unremarkable Spleen: Normal. Pancreas: Normal. Gallbladder: Normal. Lymph nodes, Peritoneum and mesentery: There is no mesenteric or retroperitoneal lymphadenopathy. Gastrointestinal tract: There are no dilated loops of bowel or free intraperitoneal air. The appe ndix is normal. There is mild descending colonic and sigmoid colonic diverticulosis with diverticulit is involving the distal descending colon that is mild. There is no perforation or abscess. Aorta/IVC: No aortic aneurysm. IVC normal. Abdominal wall: Normal. PELVIS: Fluid: There is no free fluid in the pelvis. Lymph Nodes: There is no pelvic or inguinal lymphadenopathy.. Urinary bladder: Normal. BONES: There are no osseous destructive lesions.. ADDITIONAL SIGNIFICANT FINDINGS: None. IMPRESSION: 1. Mild diverticulitis of the distal descending colon. 2. Small nonobstructing right renal stone.
[2023-08-14] MEDS ORDERED: metroNIDAZOLE-NS PMX 500 MG in SALINE 1 100ML.BAG IVPB STA (15:02)
[2023-08-14] MEDS ORDERED: ONDANSETRON 4 MG/2 ML VIAL IVP PRN (16:03)
[2023-08-14] MEDS ORDERED: NALOXONE 0.4 MG/ML 1 ML VIAL IV PRN (16:03)
[2023-08-14] MEDS ORDERED: ALBUTEROL NEBULIZED 2.5 MG/3 ML INHALATION PRN (19:09)
--- NOTE | 2023-08-14 19:09 | P.HPIM ---
History of Present Illness H&P Date: 08/14/23 Chief Complaint: Abdominal pain 53-year-old female with past medical history of hypertension, asthma, seasonal ALLERGIES, GERD presents to the emergency department with a chief complaint of abdominal pain and fever. She reports that she has been sick intermittently over the last 2 months. She reports recurrent UTIs recent COVID- 19 infection and upper respiratory symptoms. She reports that she has had sudden onset left lower quadrant abdominal pain that woke her up from sleep last night. She denies, vomiting, hematemesis, melena, hematochezia. Patient is currently on levofloxacin and prednisone for UTI. Blood work completed in ED reveals a WBC of 19.7, hemoglobin of 14.4 and platelet count of 400, sodium 137, potassium 4.1, BUN/creatinine of 14/0.65 CT abdomen reveals diverticulitis in descending colon without evidence of abscess or perforation Review of Systems REVIEW OF SYSTEMS: CONSTITUTIONAL: No fever, no malaise, no fatigue. HEENT: No recent visual problems or hearing problems. Denied any sore throat. CARDIOVASCULAR: No chest pain, orthopnea, PND, no palpitations, no syncope. PULMONARY: No shortness of breath, no cough, no hemoptysis. GASTROINTESTINAL: No diarrhea, no nausea, no vomiting, no abdominal pain. NEUROLOGICAL: No headaches, no weakness, no numbness. HEMATOLOGICAL: Denies any bleeding or petechiae. GENITOURINARY: Denies any burning micturition, frequency, or urgency. MUSCULOSKELETAL/RHEUMATOLOGICAL: Denies any joint pain, swelling, or any muscle pain. ENDOCRINE: Denies any polyuria or polydipsia. The rest of the 14-point review of systems is negative. Past Medical History Past Medical History: GERD/Reflux, Hypertension, Musculoskeletal Disorder Additional Past Medical History / Comment(s): Back pain, disc issues. Occ GERD. Seasonal allergies.SVT History of Any Multi-Drug Resistant Organisms: None Reported Past Surgical History: Bladder Surgery, Hernia Repair, Orthopedic Surgery Additional Past Surgical History / Comment(s): Cervical FUSION C5-C6. D & C. BLADDER SX X 2. BILAT KNEE SX. EPIDURAL Injections Past Anesthesia/Blood Transfusion Reactions: Motion Sickness, Postoperative Nausea & Vomiting (PONV) Past Psychological History: No Psychological Hx Reported Smoking Status: Never smoker Past Alcohol Use History: None Reported Past Drug Use History: None Reported - Past Family History Mother Family Medical History: Deep Vein Thrombosis (DVT) Additional Family Medical History / Comment(s): SUPERFICIAL CLOT IN LEG. (Maternal grandmother had colon cancer) Medications and Allergies Home Medications Medication Instructions Recorded Confirmed Type Losartan Potassium 100 mg PO DAILY 05/08/21 08/14/23 History Albuterol Sulfate [Albuterol 1 - 2 puff PO RT-Q6H PRN 08/14/23 08/14/23 History Sulfate Hfa] Fexofenadine HCl [Jeny Allergy] 180 mg PO HS 08/14/23 08/14/23 History Levofloxacin [Levaquin] 500 mg PO DAILY 08/14/23 08/14/23 History Montelukast [Singulair] 10 mg PO HS 08/14/23 08/14/23 History predniSONE See Taper PO DIRECTED 08/14/23 08/14/23 History Allergies Allergy/AdvReac Type Severity Reaction Status Date / Time No Known Allergies Allergy Verified 08/14/23 15:09 Physical Exam Vitals: Vital Signs Temp Pulse Resp BP Pulse Ox 08/14/23 16:47 98.4 F 105 H 18 134/86 98 08/14/23 11:55 99 F 120 H 20 183/98 99 Intake and Output 08/14/23 08/14/23 08/14/23 06:59 14:59 22:59 Other: Weight 78.018 kg General: Alert, in no acute distress Head: atraumatic normocephalic. Eyes PERRL, EOMI intact, mucous membranes moist Respiratory: Lungs clear to auscultation bilaterally Cardiovascular: Rate regular rate and rhythm Abdominal: Soft without guarding or rebound, lower quadrant abdominal tenderness Extremities: Normal inspection with full range of motion and normal capillary refill Neuroogic: alert and oriented 3, CN II-XII intact, able to ambulate with steady gait Skin: warm dry and intact with normal color Results CBC & Chem 7: 08/14/23 11:58 08/14/23 11:58 Labs: Abnormal Lab Results - Last 24 Hours (Table) 08/14/23 08/14/23 08/14/23 Range/Units 11:58 11:58 12:20 WBC 19.7 H (3.8-10.6) k/uL Neutrophils # 17.0 H (1.3-7.7) k/uL Glucose 118 H (74-99) mg/dL Urine Blood Moderate H (Negative) Urine RBC 9 H (0-5) /hpf Assessment and Plan Assessment: 1. Acute diverticulitis failing outpatient treatment --Patient is currently on oral antibiotics; given field outpatient treatment patient is being admitted for IV antibiotic therapy Rocephin 2 g IV daily along with metronidazole 500 mg every 8 hours - Patient will be kept nothing by mouth; IV fluid hydration -- Consult general surgery 2. Marked leukocytosis; related to acute diverticulitis with failed outpatient therapy -- We will monitor CBC, CRP antral calcitonin -- We will consult ID if WBC continues to trend up 3. Hypertension; losartan 100 mg daily 4. COPD/asthma; continue with home therapy; singular 10 mg daily 5. Seasonal ALLERGIES; Jeny 180 mg daily at bedtime DVT prophylaxis; SCDs CODE STATUS; full code
[2023-08-14] MEDS: SODIUM CHLORIDE 0.9% 1,000 ML IV SCH (20:51)
[2023-08-14] MEDS: MONTELUKAST 10 MG TAB PO SCH (20:51)
[2023-08-14] MEDS: LORATADINE 10 MG TAB PO SCH (20:51)
[2023-08-14] MEDS: MORPHINE SULFATE 4 MG/ML SYRINGE IV PRN (22:16)
[2023-08-15] MEDS: LOSARTAN 50 MG TAB PO SCH (08:12)
[2023-08-15] MEDS: MORPHINE SULFATE 4 MG/ML SYRINGE IV PRN ×2 (08:12→20:45)
[2023-08-15] MEDS: SODIUM CHLORIDE 0.9% 1,000 ML IV SCH ×2 (08:14→20:40)
[2023-08-15 08:21] LABS: Basophils % (A) 0 %; Eosinophils # (A) 0.1 k/uL (0-0.7); Eosinophils % (A) 1 %; HCT 36.6 % (34.0-46.0); HGB 12.2 gm/dL (11.4-16.0); Lymphocytes # (A) 2.6 k/uL (1.0-4.8); Lymphocytes % (A) 21 %; MCH 29.7 pg (25.0-35.0); MCHC 33.4 g/dL (31.0-37.0); Monocytes # (A) 0.7 k/uL (0-1.0); Monocytes % (A) 6 %; Neutrophils # (A) 8.7 k/uL (1.3-7.7); Neutrophils % (A) 71 %; Platelet Count 290 k/uL (150-450); RBC 4.11 m/uL (3.80-5.40); RDW 13.4 % (11.5-15.5); WBC 12.1 k/uL (3.8-10.6)
[2023-08-15 09:18] LABS: African American GFR (CKD) >90 (>60 ml/min/1.73 sqM); Anion Gap 9 mmol/L; Blood Urea Nitrogen 11 mg/dL (7-17); Calcium 8.6 mg/dL (8.4-10.2); Carbon Dioxide 23 mmol/L (22-30); Chloride 105 mmol/L (98-107); Glucose 87 mg/dL (74-99); Non-African American GFR(CKD) >90 (>60 ml/min/1.73 sqM); Sodium 137 mmol/L (137-145)
--- NOTE | 2023-08-15 12:10 | P.GSCN ---
History of Present Illness Consult date: 08/15/23 Reason for Consult: Diverticulitis sigmoid. History of present illness: Patient's first episode of diverticulitis.Pain increasing. Presented to the emergency department where computed tomography scan noted sigmoid diverticulitis with questionable microperforation. Review of Systems - Constitutional Denies fever, Denies weight loss - EENT Eyes: denies blurred vision Ears, nose, mouth and throat: Denies dysphagia - Cardiovascular Denies chest pain, Denies shortness of breath - Respiratory Denies cough, Denies 7 - Gastrointestinal Reports as per HPI, Reports abdominal pain, Reports bloating, Reports excessive gas - Genitourinary Genitourinary: Denies dysuria, Denies hematuria - Integumentary Denies rash, Denies unusual bruising - Neurological Denies headaches, Denies syncope Past Medical History Past Medical History: GERD/Reflux, Hypertension, Musculoskeletal Disorder Additional Past Medical History / Comment(s): Back pain, disc issues. Occ GERD. Seasonal allergies.SVT History of Any Multi-Drug Resistant Organisms: None Reported Past Surgical History: Bladder Surgery, Hernia Repair, Orthopedic Surgery Additional Past Surgical History / Comment(s): Cervical FUSION C5-C6. D & C. BLADDER SX X 2. BILAT KNEE SX. EPIDURAL Injections Past Anesthesia/Blood Transfusion Reactions: Motion Sickness, Postoperative Nausea & Vomiting (PONV) Past Psychological History: No Psychological Hx Reported Smoking Status: Never smoker Past Alcohol Use History: None Reported Past Drug Use History: None Reported - Past Family History Mother Family Medical History: Deep Vein Thrombosis (DVT) Additional Family Medical History / Comment(s): SUPERFICIAL CLOT IN LEG. (Maternal grandmother had colon cancer) Medications and Allergies Home Medications Medication Instructions Recorded Confirmed Type Losartan Potassium 100 mg PO DAILY 05/08/21 08/14/23 History Albuterol Sulfate [Albuterol 1 - 2 puff PO RT-Q6H PRN 08/14/23 08/14/23 History Sulfate Hfa] Fexofenadine HCl [Jeny Allergy] 180 mg PO HS 08/14/23 08/14/23 History Levofloxacin [Levaquin] 500 mg PO DAILY 08/14/23 08/14/23 History Montelukast [Singulair] 10 mg PO HS 08/14/23 08/14/23 History predniSONE See Taper PO DIRECTED 08/14/23 08/14/23 History Allergies Allergy/AdvReac Type Severity Reaction Status Date / Time No Known Allergies Allergy Verified 08/14/23 15:09 Surgical - Exam Vital Signs Temp Pulse Resp BP Pulse Ox 99 F 120 H 20 183/98 99 08/14/23 11:55 08/14/23 11:55 08/14/23 11:55 08/14/23 11:55 08/14/23 11:55 - General well developed, well nourished, no distress - Eyes normal ocular movement, no icteric - ENT no hearing loss, no congestion - Neck no masses, trachea midline - Respiratory normal respiratory effort, clear to auscultation - Abdomen Abdomen: soft, tender (Mild abdominal pain no peritonitis.), bowel sounds - Integumentary no rash, no abnormal pigmentation - Neurologic no disoriented, no combative Results - Labs 08/15/23 07:01 08/15/23 07:01 Abnormal Lab Results - Last 24 Hours (Table) 08/14/23 08/14/23 08/14/23 Range/Units 11:58 11:58 12:20 WBC 19.7 H (3.8-10.6) k/uL Neutrophils # 17.0 H (1.3-7.7) k/uL Creatinine (0.52-1.04) mg/dL Glucose 118 H (74-99) mg/dL Urine Blood Moderate H (Negative) Urine RBC 9 H (0-5) /hpf 08/15/23 08/15/23 Range/Units 07:01 07:01 WBC 12.1 H (3.8-10.6) k/uL Neutrophils # 8.7 H (1.3-7.7) k/uL Creatinine 0.51 L (0.52-1.04) mg/dL Glucose (74-99) mg/dL Urine Blood (Negative) Urine RBC (0-5) /hpf Diabetes panel 08/14/23 08/15/23 Range/Units 11:58 07:01 Sodium 137 137 (137-145) mmol/L Potassium 4.1 4.0 (3.5-5.1) mmol/L Chloride 100 105 (98-107) mmol/L Carbon Dioxide 24 23 (22-30) mmol/L BUN 14 11 (7-17) mg/dL Creatinine 0.65 0.51 L (0.52-1.04) mg/dL Glucose 118 H 87 (74-99) mg/dL Calcium 9.7 8.6 (8.4-10.2) mg/dL AST 19 (14-36) U/L ALT 30 (4-34) U/L Alkaline Phosphatase 91 (38-126) U/L Total Protein 7.5 (6.3-8.2) g/dL Albumin 4.5 (3.5-5.0) g/dL Calcium panel 08/14/23 08/15/23 Range/Units 11:58 07:01 Calcium 9.7 8.6 (8.4-10.2) mg/dL Albumin 4.5 (3.5-5.0) g/dL Pituitary panel 08/14/23 08/15/23 Range/Units 11:58 07:01 Sodium 137 137 (137-145) mmol/L Potassium 4.1 4.0 (3.5-5.1) mmol/L Chloride 100 105 (98-107) mmol/L Carbon Dioxide 24 23 (22-30) mmol/L BUN 14 11 (7-17) mg/dL Creatinine 0.65 0.51 L (0.52-1.04) mg/dL Glucose 118 H 87 (74-99) mg/dL Calcium 9.7 8.6 (8.4-10.2) mg/dL Adrenal panel 08/14/23 08/15/23 Range/Units 11:58 07:01 Sodium 137 137 (137-145) mmol/L Potassium 4.1 4.0 (3.5-5.1) mmol/L Chloride 100 105 (98-107) mmol/L Carbon Dioxide 24 23 (22-30) mmol/L BUN 14 11 (7-17) mg/dL Creatinine 0.65 0.51 L (0.52-1.04) mg/dL Glucose 118 H 87 (74-99) mg/dL Calcium 9.7 8.6 (8.4-10.2) mg/dL Total Bilirubin 0.8 (0.2-1.3) mg/dL AST 19 (14-36) U/L ALT 30 (4-34) U/L Alkaline Phosphatase 91 (38-126) U/L Total Protein 7.5 (6.3-8.2) g/dL Albumin 4.5 (3.5-5.0) g/dL Assessment and Plan Assessment: Diverticulitis, improved white blood count trending down from 19-12. Plan: Continue IV antibiotics. Advance diet.
--- NOTE | 2023-08-15 17:31 | P.PN ---
Subjective Progress Note Date: 08/15/23 53-year-old female with past medical history of hypertension, asthma, seasonal ALLERGIES, GERD presents to the emergency department with a chief complaint of abdominal pain and fever. She reports that she has been sick intermittently over the last 2 months. She reports recurrent UTIs recent COVID- 19 infection and upper respiratory symptoms. She reports that she has had sudden onset left lower quadrant abdominal pain that woke her up from sleep last night. She denies, vomiting, hematemesis, melena, hematochezia. Patient is currently on levofloxacin and prednisone for UTI. Blood work completed in ED reveals a WBC of 19.7, hemoglobin of 14.4 and platelet count of 400, sodium 137, potassium 4.1, BUN/creatinine of 14/0.65 CT abdomen reveals diverticulitis in descending colon without evidence of abscess or perforation Objective - Vital Signs Vital signs: Vital Signs Temp 98.3 F 08/15/23 07:00 Pulse 64 08/15/23 07:00 Resp 16 08/15/23 07:00 BP 137/78 08/15/23 07:00 Pulse Ox 98 08/15/23 07:00 FiO2 Intake & Output 08/14/23 08/15/23 08/15/23 18:59 06:59 18:59 Weight 78.018 kg 78.018 kg Other: Voiding Method Toilet Toilet # Voids 1 - Exam General: Alert, in no acute distress Head: atraumatic normocephalic. Eyes PERRL, EOMI intact, mucous membranes moist Respiratory: Lungs clear to auscultation bilaterally Cardiovascular: Rate regular rate and rhythm Abdominal: Soft without guarding or rebound, lower quadrant abdominal tenderness Extremities: Normal inspection with full range of motion and normal capillary refill Neuroogic: alert and oriented 3, CN II-XII intact, able to ambulate with steady gait Skin: warm dry and intact with normal color - Labs CBC & Chem 7: 08/15/23 07:01 08/15/23 07:01 Labs: Abnormal Lab Results - Last 24 Hours (Table) 08/14/23 08/14/23 08/14/23 Range/Units 11:58 11:58 12:20 WBC 19.7 H (3.8-10.6) k/uL Neutrophils # 17.0 H (1.3-7.7) k/uL Creatinine (0.52-1.04) mg/dL Glucose 118 H (74-99) mg/dL Urine Blood Moderate H (Negative) Urine RBC 9 H (0-5) /hpf 08/15/23 08/15/23 Range/Units 07:01 07:01 WBC 12.1 H (3.8-10.6) k/uL Neutrophils # 8.7 H (1.3-7.7) k/uL Creatinine 0.51 L (0.52-1.04) mg/dL Glucose (74-99) mg/dL Urine Blood (Negative) Urine RBC (0-5) /hpf Assessment and Plan Assessment: 1. Acute diverticulitis failing outpatient treatment --Patient is currently on oral antibiotics; given field outpatient treatment patient is being admitted for IV antibiotic therapy Rocephin 2 g IV daily along with metronidazole 500 mg every 8 hours - Patient will be kept nothing by mouth; IV fluid hydration -- Consult general surgery 2. Marked leukocytosis; related to acute diverticulitis with failed outpatient therapy -- We will monitor CBC, CRP antral calcitonin -- We will consult ID if WBC continues to trend up 3. Hypertension; losartan 100 mg daily 4. COPD/asthma; continue with home therapy; singular 10 mg daily 5. Seasonal ALLERGIES; Jeny 180 mg daily at bedtime DVT prophylaxis; SCDs CODE STATUS; full code
[2023-08-15] MEDS: metroNIDAZOLE-NS PMX 500 MG in SALINE 1 100ML.BAG IVPB SCH (17:49)
[2023-08-15] MEDS: MONTELUKAST 10 MG TAB PO SCH (20:39)
[2023-08-15] MEDS: LORATADINE 10 MG TAB PO SCH (20:39)
[2023-08-16] MEDS: metroNIDAZOLE-NS PMX 500 MG in SALINE 1 100ML.BAG IVPB SCH ×3 (01:34→17:21)
--- NOTE | 2023-08-16 07:31 | P.CONS ---
History of Present Illness - Reason for Consult Consult date: 08/15/23 Positive blood culture Requesting physician: Malik Fay - Chief Complaint Abdominal pain x few days - History of Present Illness Patient is a 53-year-old female with a past medical history significant for hypertension chronic back pain GERD presenting to the hospital yesterday afternoon for evaluation of abdominal pain and fever and not feeling well apparently the patient started having abdominal pain getting worse for the last few days before presentation to the hospital pain has been mostly in the left lower abdominal area describing it to be mild to moderate intensity without any radiation with associated nausea but no vomiting did have some constipation did have some chills on presentation to the hospital patient noted to have a low-grade fever of 99 degrees for night patient did have intermittent tachycardia no hypotension or hypoxemia or need for supplemental oxygen white count of 19.7 that is down to 12.1 today creatinine 0.51 urine was negative patient did have abdominal pelvis CT mild diverticulitis of the descending colon small nonobstructive renal stone patient did have blood cultures done which came back positive with gram-positive bacilli That has prompted this infectious disease consultation Review of Systems Positive point and negatives has been mentioned in the HPI, complete review of systems was performed and all other systems are negative Past Medical History Past Medical History: GERD/Reflux, Hypertension, Musculoskeletal Disorder Additional Past Medical History / Comment(s): Back pain, disc issues. Occ GERD. Seasonal allergies.SVT History of Any Multi-Drug Resistant Organisms: None Reported Past Surgical History: Bladder Surgery, Hernia Repair, Orthopedic Surgery Additional Past Surgical History / Comment(s): Cervical FUSION C5-C6. D & C. BLADDER SX X 2. BILAT KNEE SX. EPIDURAL Injections Past Anesthesia/Blood Transfusion Reactions: Motion Sickness, Postoperative Nausea & Vomiting (PONV) Past Psychological History: No Psychological Hx Reported Smoking Status: Never smoker Past Alcohol Use History: None Reported Past Drug Use History: None Reported - Past Family History Mother Family Medical History: Deep Vein Thrombosis (DVT) Additional Family Medical History / Comment(s): SUPERFICIAL CLOT IN LEG. (Maternal grandmother had colon cancer) Medications and Allergies Home Medications Medication Instructions Recorded Confirmed Type Losartan Potassium 100 mg PO DAILY 05/08/21 08/14/23 History Albuterol Sulfate [Albuterol 1 - 2 puff PO RT-Q6H PRN 08/14/23 08/14/23 History Sulfate Hfa] Fexofenadine HCl [Jeny Allergy] 180 mg PO HS 08/14/23 08/14/23 History Montelukast [Singulair] 10 mg PO HS 08/14/23 08/14/23 History Ondansetron [Zofran] 4 mg PO Q8HR PRN 4 Days #10 tab 08/17/23 Rx cefUROXime axetiL [Ceftin] 500 mg PO BID 10 Days #20 tab 08/17/23 Rx metroNIDAZOLE [Flagyl] 500 mg PO TID #30 tab 08/17/23 Rx Allergies Allergy/AdvReac Type Severity Reaction Status Date / Time No Known Allergies Allergy Verified 08/14/23 15:09 Physical Exam Vitals: Vital Signs Temp Pulse Pulse Resp BP BP BP 08/15/23 14:20 99.0 F 106 H 15 125/70 08/15/23 07:00 98.3 F 64 16 137/78 08/15/23 02:00 98.5 F 103 H 19 113/68 08/14/23 22:30 98.9 F 93 15 122/75 08/14/23 20:49 97.6 F 96 19 138/82 08/14/23 16:47 98.4 F 105 H 18 134/86 Pulse Ox 08/15/23 14:20 98 08/15/23 07:00 98 08/15/23 02:00 97 08/14/23 22:30 95 08/14/23 20:49 98 08/14/23 16:47 98 Intake and Output 08/14/23 08/15/23 08/15/23 22:59 06:59 14:59 Intake Total 240 Balance 240 Intake: Oral 240 Other: Voiding Method Toilet Toilet # Voids 1 1 Weight 78.018 kg GENERAL DESCRIPTION: Middle-aged female lying in bed, no distress. No tachypnea or accessory muscle of respiration use. HEENT: Shows Pallor , no scleral icterus. Oral mucous membrane is dry. No pharyngeal erythema or thrush NECK: Trachea central, no thyromegaly. LUNGS: Unlabored breathing. Clear to auscultation anteriorly. No wheeze or crackle. HEART: S1, S2, regular rate and rhythm. No loud murmur ABDOMEN: Soft, mild left lower abdominal tenderness EXTREMITIES: No edema of feet. SKIN: No rash, no masses palpable. NEUROLOGICAL: The patient is awake, alert, oriented x3, mood and affect normal. Results CBC & Chem 7: 08/17/23 05:19 08/17/23 05:19 Labs: Abnormal Lab Results - Last 24 Hours (Table) 08/15/23 08/15/23 Range/Units 07:01 07:01 WBC 12.1 H (3.8-10.6) k/uL Neutrophils # 8.7 H (1.3-7.7) k/uL Creatinine 0.51 L (0.52-1.04) mg/dL Microbiology - Last 24 Hours (Table) 08/14/23 16:00 Blood Culture Gram Stain - Preliminary Blood Assessment and Plan (1) Diverticulitis Status: Acute Code(s): K57.92 - DVTRCLI OF INTEST, PART UNSP, W/O PERF OR ABSCESS W/O BLEED SNOMED Code(s): 293726285 (2) Positive blood culture Status: Acute Code(s): R78.81 - BACTEREMIA SNOMED Code(s): 301453176 Plan: 1patient presented to hospital with abdominal pain nausea did have a low-grade fever elevated white count source is likely diverticulitis of the distal end colon seen on the CT without any evidence of complication will need to cover for the enteric gram-negative further rubs and anaerobes 2-positive blood culture with gram-positive bacilli more likely skin contamination 3-blood cultures will be repeated document clearance and wait for the final ID on the positive blood culture 4-patient to continue with Rocephin and Flagyl for underlying diverticulitis has been advised bowel rest and soft food We will follow on clinical condition and cultures to further adjust medication if needed Thank you for this consultation we will follow the patient along with you Dictation was produced using [employer] dictation software. please excuse any grammatical, word or spelling errors. Time with Patient: Greater than 30
[2023-08-16] MEDS: LOSARTAN 50 MG TAB PO SCH (08:09)
[2023-08-16] MEDS: SODIUM CHLORIDE 0.9% 1,000 ML IV SCH ×2 (10:50→23:50)
--- NOTE | 2023-08-16 11:13 | P.PN ---
Subjective Progress Note Date: 08/16/23 Principal diagnosis: Reason for follow-up is acute diverticulitis and positive blood culture Patient is a 53-year-old female with a past medical history significant for hypertension chronic back pain GERD presenting to the hospital for evaluation of abdominal pain has been diagnosed with the diverticulitis without evidence of perforation patient also have a positive blood culture gram- positive bacilli prompting this infectious disease consultation On today's evaluation that is 08/16/2023 the patient is afebrile at this morning the patient is breathing comfortably the patient abdominal pain has slightly decreased in intensity patient denies any nausea or vomiting no bowel movement no chest pain shortness of breath or cough currently 99% on room air. Patient did have white count of 12.1 as of yesterday blood work is pending from this morning repeat blood cultures are pending Objective - Vital Signs Vital signs: Vital Signs Temp 98.7 F 08/16/23 07:00 Pulse 97 08/16/23 07:00 Resp 15 08/16/23 07:00 BP 145/69 08/16/23 07:00 Pulse Ox 98 08/16/23 07:00 FiO2 Intake & Output 08/15/23 08/16/23 08/16/23 18:59 06:59 18:59 Intake Total 240 Balance 240 Intake: Oral 240 Other: Voiding Method Toilet Toilet # Voids 1 1 - Exam GENERAL DESCRIPTION: Middle-aged female lying in bed in no distress RESPIRATORY SYSTEM: Unlabored breathing , decreased breath sounds at bases HEART: S1 S2 regular rate and rhythm , ABDOMEN: Soft , no tenderness EXTREMITIES: No edema feet - Labs CBC & Chem 7: 08/15/23 07:01 08/15/23 07:01 Labs: Abnormal Lab Results - Last 24 Hours (Table) 08/15/23 Range/Units 15:18 C-Reactive Protein 7.2 H (<1.0) mg/dL Microbiology - Last 24 Hours (Table) 08/14/23 15:45 Blood Culture - Preliminary Blood 08/14/23 16:00 Blood Culture Gram Stain - Preliminary Blood Assessment and Plan (1) Positive blood culture Current Visit: Yes Status: Acute Code(s): R78.81 - BACTEREMIA SNOMED Code(s): 940823458 (2) Diverticulitis Current Visit: Yes Status: Acute Code(s): K57.92 - DVTRCLI OF INTEST, PART UNSP, W/O PERF OR ABSCESS W/O BLEED SNOMED Code(s): 012816440 (3) Leukocytosis Current Visit: Yes Status: Acute Code(s): D72.829 - ELEVATED WHITE BLOOD CELL COUNT, UNSPECIFIED SNOMED Code(s): 242681074 Plan: 1patient presented to hospital with abdominal pain nausea did have a low-grade fever elevated white count source is likely diverticulitis of the distal end colon seen on the CT without any evidence of complication will need to cover for the enteric gram-negative further rubs and anaerobes 2-positive blood culture with gram-positive bacilli more likely skin contamination 3-blood culture has been repeated and waiting for ID sensitivities on the initial blood culture. 4patient to continue with Rocephin and Flagyl hopefully transition to oral Ceftin and Flagyl on discharge Questions concern answered Dictation was produced using [employer] dictation software. please excuse any grammatical, word or spelling errors.
--- NOTE | 2023-08-16 14:13 | P.PN ---
Subjective Progress Note Date: 08/16/23 CHIEF COMPLAINT: Diverticulitis HISTORY OF PRESENT ILLNESS: The patient is a 53-year-old presents with diverticulitis. She reports resolved abdominal pain and tolerating regular diet. She was on antibiotics and steroids for protracted course of UTI, sinus infections. ROS: No reports of nausea and vomiting. No bowel movements. No fevers or chills. No new chest pain. No productive sputum PHYSICAL EXAM: VITAL SIGNS: Reviewed CONSTITUTIONAL: Well developed and in no acute distress. EYES: Conjuctivae without sclera icterus. Extraocular movements grossly intact. HEAD, EARS, NOSE, THROAT: Moist buccal mucosa. Head is atraumatic, normocephalic. Hears conversational speech. No nasal drainage. RESPIRATORY: Non-labored respirations and equal bilateral excursions. CARDIOVASCULAR: Palpable 2+ radial pulses. ABDOMEN: No peritonitis. MUSCULOSKELETAL: No gross deformity of the lower extremities noted. No clubbing. No cyanosis. SKIN: Good skin turgor. Well perfused. NEUROLOGIC: Cranial nerves II through XII grossly intact. No focal or lateralizing signs. PSYCH: Appropriate affect. Alert and oriented to person, place and time. CLINICAL LABS: Reviewed. WBC elevated STUDIES: CT abdomen and pelvis independently reviewed demonstrating descending colitis including sigmoid colon colitis. This is my independent interpretation. ASSESSMENT: 1. Diverticulitis PLAN: 1. As she has clinically improved, okay for discharge. 2. Will need antibiotics on discharge. 3. Recommend stop steroids. Objective - Vital Signs Vital signs: Vital Signs Temp 98.7 F 08/16/23 07:00 Pulse 97 08/16/23 07:00 Resp 15 08/16/23 07:00 BP 145/69 08/16/23 07:00 Pulse Ox 98 08/16/23 07:00 FiO2 Intake & Output 08/15/23 08/16/23 08/16/23 18:59 06:59 18:59 Intake Total 240 Balance 240 Intake: Oral 240 Other: Voiding Method Toilet Toilet # Voids 1 1 1 - Labs CBC & Chem 7: 08/15/23 07:01 08/15/23 07:01 Labs: Abnormal Lab Results - Last 24 Hours (Table) 08/15/23 Range/Units 15:18 C-Reactive Protein 7.2 H (<1.0) mg/dL Microbiology - Last 24 Hours (Table) 08/14/23 16:00 Blood Culture Gram Stain - Preliminary Blood Blood Culture - Preliminary Bacillus species Not Anthracis 08/14/23 15:45 Blood Culture - Preliminary Blood
--- NOTE | 2023-08-16 18:03 | P.PN ---
Subjective Progress Note Date: 08/16/23 53-year-old female with past medical history of hypertension, asthma, seasonal ALLERGIES, GERD presents to the emergency department with a chief complaint of abdominal pain and fever. She reports that she has been sick intermittently over the last 2 months. She reports recurrent UTIs recent COVID- 19 infection and upper respiratory symptoms. She reports that she has had sudden onset left lower quadrant abdominal pain that woke her up from sleep last night. She denies, vomiting, hematemesis, melena, hematochezia. Patient is currently on levofloxacin and prednisone for UTI. Blood work completed in ED reveals a WBC of 19.7, hemoglobin of 14.4 and platelet count of 400, sodium 137, potassium 4.1, BUN/creatinine of 14/0.65 CT abdomen reveals diverticulitis in descending colon without evidence of abscess or perforation 08/16/2023 --the patient is afebrile at this morning the patient is breathing comfortably the patient abdominal pain has slightly decreased in intensity patient denies any nausea or vomiting no bowel movement no chest pain shortness of breath or cough currently 99% on room air. --white count of 12.1 as of yesterday blood work is pending from this morning repeat blood cultures are pending patient presented to hospital with abdominal pain nausea did have a low-grade fever elevated white count source is likely diverticulitis of the distal end colon seen on the CT without any evidence of complication will need to cover for the enteric gram-negative further rubs and anaerobes - per ID, positive blood culture with gram-positive bacilli more likely skin contamination -blood culture has been repeated and waiting for ID sensitivities on the initial blood culture. patient to continue with Rocephin and Flagyl; plan transition to oral Ceftin and Flagyl on discharge Objective - Vital Signs Vital signs: Vital Signs Temp 98.7 F 08/16/23 07:00 Pulse 97 08/16/23 07:00 Resp 15 08/16/23 07:00 BP 145/69 08/16/23 07:00 Pulse Ox 98 08/16/23 07:00 FiO2 Intake & Output 08/15/23 08/16/23 08/16/23 18:59 06:59 18:59 Intake Total 240 Balance 240 Intake: Oral 240 Other: Voiding Method Toilet Toilet # Voids 1 1 1 - Exam General: Alert, in no acute distress Head: atraumatic normocephalic. Eyes PERRL, EOMI intact, mucous membranes moist Respiratory: Lungs clear to auscultation bilaterally Cardiovascular: Rate regular rate and rhythm Abdominal: Soft without guarding or rebound, lower quadrant abdominal tenderness Extremities: Normal inspection with full range of motion and normal capillary refill Neuroogic: alert and oriented 3, CN II-XII intact, able to ambulate with steady gait Skin: warm dry and intact with normal color - Labs CBC & Chem 7: 08/15/23 07:01 08/15/23 07:01 Labs: Abnormal Lab Results - Last 24 Hours (Table) 08/15/23 Range/Units 15:18 C-Reactive Protein 7.2 H (<1.0) mg/dL Microbiology - Last 24 Hours (Table) 08/14/23 16:00 Blood Culture Gram Stain - Preliminary Blood Blood Culture - Preliminary Bacillus species Not Anthracis 08/14/23 15:45 Blood Culture - Preliminary Blood Assessment and Plan Assessment: 1. Acute diverticulitis failing outpatient treatment --Patient is currently on oral antibiotics; given field outpatient treatment patient is being admitted for IV antibiotic therapy Rocephin 2 g IV daily along with metronidazole 500 mg every 8 hours - Patient will be kept nothing by mouth; IV fluid hydration -- Consult general surgery 2. Marked leukocytosis; related to acute diverticulitis with failed outpatient therapy -- We will monitor CBC, CRP antral calcitonin -- We will consult ID if WBC continues to trend up 3. Hypertension; losartan 100 mg daily 4. COPD/asthma; continue with home therapy; singular 10 mg daily 5. Seasonal ALLERGIES; Jeny 180 mg daily at bedtime DVT prophylaxis; SCDs CODE STATUS; full code
[2023-08-16] MEDS: MONTELUKAST 10 MG TAB PO SCH (20:05)
[2023-08-16] MEDS: LORATADINE 10 MG TAB PO SCH (20:05)
[2023-08-17] MEDS: metroNIDAZOLE-NS PMX 500 MG in SALINE 1 100ML.BAG IVPB SCH ×2 (01:17→10:03)
[2023-08-17 07:42] VITALS: BP 122/77; PULSE 77; RESP 18; TEMP 98.9
[2023-08-17 08:58] LABS: Basophils # (A) 0.04 X 10*3/uL (0.00-0.10); Basophils % (A) 0.3 %; Eosinophils % (A) 1.6 %; HGB 12.3 g/dL (12.0-15.0); Lymphocytes # (A) 1.59 X 10*3/uL (0.90-5.00); Lymphocytes % (A) 12.5 %; MCH 28.9 pg (27.0-32.0); MCHC 33.2 g/dL (32.0-37.0); MCV 87.1 FL (80.0-97.0); Mean Platelet Volume 8.7 FL (9.5-12.2); Monocytes # (A) 0.85 X 10*3/uL (0.20-1.00); Monocytes % (A) 6.7 %; NRBC Per 100 WBC 0 X 10*3/uL (0.00-0.01); Neutrophils # (A) 9.96 X 10*3/uL (1.80-7.70); Neutrophils % (A) 78.3 %; Platelet Count 263 X 10*3/uL (140-440); RBC 4.25 X 10*6/uL (4.10-5.20); RDW 13.2 % (11.5-14.5); WBC 12.72 X 10*3/uL (4.50-10.00)
[2023-08-17 09:10] LABS: BUN/Creat Ratio 17.33 Ratio (12.00-20.00); Blood Urea Nitrogen 10.4 mg/dL (9.0-27.0); Calcium 8.9 mg/dL (8.7-10.3); Carbon Dioxide 23.8 mmol/L (21.6-31.8); Chloride 106 mmol/L (96-109); Glucose 125 mg/dL (70-110); Potassium 4.3 mmol/L (3.5-5.5); Sodium 140 mmol/L (135-145)
[2023-08-17] MEDS: LOSARTAN 50 MG TAB PO SCH (09:24)
--- NOTE | 2023-08-17 12:25 | P.PN ---
Subjective Progress Note Date: 08/17/23 CHIEF COMPLAINT: Diverticulitis HISTORY OF PRESENT ILLNESS: The patient is a 53-year-old presents with diverticulitis. She was kept due to blood cultures pending for bactermia. She denies fevers and has no active abdominal pain. ROS: No reports of nausea and vomiting. No bowel movements. No fevers or chills. No new chest pain. No productive sputum PHYSICAL EXAM: VITAL SIGNS: Reviewed CONSTITUTIONAL: Well developed and in no acute distress. EYES: Conjuctivae without sclera icterus. Extraocular movements grossly intact. HEAD, EARS, NOSE, THROAT: Moist buccal mucosa. Head is atraumatic, normocephalic. Hears conversational speech. No nasal drainage. RESPIRATORY: Non-labored respirations and equal bilateral excursions. CARDIOVASCULAR: Palpable 2+ radial pulses. ABDOMEN: No peritonitis. MUSCULOSKELETAL: No gross deformity of the lower extremities noted. No clubbing. No cyanosis. SKIN: Good skin turgor. Well perfused. NEUROLOGIC: Cranial nerves II through XII grossly intact. No focal or lateralizing signs. PSYCH: Appropriate affect. Alert and oriented to person, place and time. CLINICAL LABS: Reviewed. Micro: preliminary no growth after 24 hrs. ASSESSMENT: 1. Diverticulitis 2. Bacteremia PLAN: 1. Discharge pending blood cultures 2. Follow up as outpatient with PCP and surgery. Objective - Vital Signs Vital signs: Vital Signs Temp 98.9 F 08/17/23 07:00 Pulse 77 08/17/23 07:00 Resp 18 08/17/23 07:00 BP 122/77 08/17/23 07:00 Pulse Ox 99 08/17/23 07:00 FiO2 Intake & Output 08/16/23 08/17/23 08/17/23 18:59 06:59 18:59 Intake Total 240 Balance 240 Intake: Oral 240 Other: Voiding Method Toilet # Voids 1 2 - Labs CBC & Chem 7: 08/17/23 05:19 08/17/23 05:19 Labs: Abnormal Lab Results - Last 24 Hours (Table) 08/17/23 08/17/23 Range/Units 05:19 05:19 WBC 12.72 H (4.50-10.00) X 10*3/uL Hct 37.0 L (37.2-46.3) % MPV 8.7 L (9.5-12.2) FL Immature Gran # 0.08 H (0.00-0.04) X 10*3/uL Neutrophils # 9.96 H (1.80-7.70) X 10*3/uL Glucose 125 H (70-110) mg/dL Microbiology - Last 24 Hours (Table) 08/14/23 15:45 Blood Culture - Preliminary Blood 08/15/23 15:18 Blood Culture - Preliminary Blood 08/14/23 16:00 Blood Culture Gram Stain - Preliminary Blood Blood Culture - Preliminary Bacillus species Not Anthracis
--- NOTE | 2023-08-17 13:10 | P.DS ---
Providers Date of admission: 08/14/23 16:15 Expected date of discharge: 08/17/23 Attending physician: Malik Fay MD Consults: 08/14/23 16:03 Consult Physician Routine Consulting Provider: Alberto Pruett Consult Reason/Comments: Diverticulitis Do you want consulting provider notified?: Yes 08/15/23 13:26 Consult Physician Routine Consulting Provider: Africa Sewell Consult Reason/Comments: positive blood cultures Do you want consulting provider notified?: Yes Primary care physician: Pedro Pratt MD Hospital Course: 53-year-old female with past medical history of hypertension, asthma, seasonal ALLERGIES, GERD presents to the emergency department with a chief complaint of abdominal pain and fever. She reports that she has been sick intermittently over the last 2 months. She reports recurrent UTIs recent COVID- 19 infection and upper respiratory symptoms. She reports that she has had sudden onset left lower quadrant abdominal pain that woke her up from sleep last night. She denies, vomiting, hematemesis, melena, hematochezia. Patient is currently on levofloxacin and prednisone for UTI. Blood work completed in ED reveals a WBC of 19.7, hemoglobin of 14.4 and platelet count of 400, sodium 137, potassium 4.1, BUN/creatinine of 14/0.65 CT abdomen reveals diverticulitis in descending colon without evidence of abscess or perforation 1. Acute diverticulitis failing outpatient treatment --Patient is currently on oral antibiotics; given field outpatient treatment patient is being admitted for IV antibiotic therapy Rocephin 2 g IV daily along with metronidazole 500 mg every 8 hours - Patient will be kept nothing by mouth; IV fluid hydration -- Consult general surgery 2. Marked leukocytosis; related to acute diverticulitis with failed outpatient therapy -- We will monitor CBC, CRP antral calcitonin -- We will consult ID if WBC continues to trend up 08/16/2023 --the patient is afebrile at this morning the patient is breathing comfortably the patient abdominal pain has slightly decreased in intensity patient denies any nausea or vomiting no bowel movement no chest pain shortness of breath or cough currently 99% on room air. --white count of 12.1 as of yesterday blood work is pending from this morning repeat blood cultures are pending patient presented to hospital with abdominal pain nausea did have a low-grade fever elevated white count source is likely diverticulitis of the distal end colon seen on the CT without any evidence of complication will need to cover for the enteric gram-negative further rubs and anaerobes - per ID, positive blood culture with gram-positive bacilli more likely skin contamination -blood culture has been repeated and waiting for ID sensitivities on the initial blood culture. patient to continue with Rocephin and Flagyl; plan transition to oral Ceftin and Flagyl on discharge 08/17/2023; patient cleared for discharge by ID Patient Condition at Discharge: Fair Plan - Discharge Summary Discharge Rx Participant: No New Discharge Prescriptions: New cefUROXime axetiL [Ceftin] 500 mg PO BID 10 Days #20 tab metroNIDAZOLE [Flagyl] 500 mg PO TID #30 tab Discontinued Levofloxacin [Levaquin] 500 mg PO DAILY No Action Fexofenadine HCl [Jeny Allergy] 180 mg PO HS predniSONE See Taper PO DIRECTED Montelukast [Singulair] 10 mg PO HS Albuterol Sulfate [Albuterol Sulfate Hfa] 1 - 2 puff PO RT-Q6H PRN PRN Reason: Shortness Of Breath Losartan Potassium 100 mg PO DAILY Discharge Medication List Losartan Potassium 100 mg PO DAILY 05/08/21 [History] Albuterol Sulfate [Albuterol Sulfate Hfa] 1 - 2 puff PO RT-Q6H PRN 08/14/23 [History] Fexofenadine HCl [Jeny Allergy] 180 mg PO HS 08/14/23 [History] Montelukast [Singulair] 10 mg PO HS 08/14/23 [History] predniSONE See Taper PO DIRECTED 08/14/23 [History] cefUROXime axetiL [Ceftin] 500 mg PO BID 10 Days #20 tab 08/17/23 [Rx] metroNIDAZOLE [Flagyl] 500 mg PO TID #30 tab 08/17/23 [Rx] Follow up Appointment(s)/Referral(s): Pedro Pratt MD [Primary Care Provider] - 1-2 days Gi Strong MD [STAFF PHYSICIAN] - 2 Weeks (Will need referral from PCP)
--- NOTE | 2023-08-18 15:10 | P.PN ---
Subjective Progress Note Date: 08/17/23 Principal diagnosis: Reason for follow-up is acute diverticulitis and positive blood culture Patient is a 53-year-old female with a past medical history significant for hypertension chronic back pain GERD presenting to the hospital for evaluation of abdominal pain has been diagnosed with the diverticulitis without evidence of perforation patient also have a positive blood culture gram- positive bacilli prompting this infectious disease consultation On today's evaluation that is 08/17/2023, the patient remains to be afebrile the patient is breathing comfortably on room air patient denies having any chest pain shortness breath or cough the patient abdominal pain has decreased in intensity and has been tolerating her diet and did have a bowel movement. Patient did have white count of 12.72, creatinine 0.6 Objective - Vital Signs Vital signs: Vital Signs Temp 98.9 F 08/17/23 07:00 Pulse 77 08/17/23 07:00 Resp 18 08/17/23 07:00 BP 122/77 08/17/23 07:00 Pulse Ox 99 08/17/23 07:00 FiO2 Intake & Output 08/16/23 08/17/23 08/17/23 18:59 06:59 18:59 Intake Total 240 Balance 240 Intake: Oral 240 Other: Voiding Method Toilet # Voids 1 2 - Exam GENERAL DESCRIPTION: Middle-aged female lying in bed in no distress RESPIRATORY SYSTEM: Unlabored breathing , decreased breath sounds at bases HEART: S1 S2 regular rate and rhythm , ABDOMEN: Soft , no tenderness EXTREMITIES: No edema feet - Labs CBC & Chem 7: 08/17/23 05:19 08/17/23 05:19 Labs: Abnormal Lab Results - Last 24 Hours (Table) 08/17/23 08/17/23 Range/Units 05:19 05:19 WBC 12.72 H (4.50-10.00) X 10*3/uL Hct 37.0 L (37.2-46.3) % MPV 8.7 L (9.5-12.2) FL Immature Gran # 0.08 H (0.00-0.04) X 10*3/uL Neutrophils # 9.96 H (1.80-7.70) X 10*3/uL Glucose 125 H (70-110) mg/dL Microbiology - Last 24 Hours (Table) 12/22/23 15:45 Blood Culture - Preliminary Blood 08/15/23 15:18 Blood Culture - Preliminary Blood 08/14/23 16:00 Blood Culture Gram Stain - Preliminary Blood Blood Culture - Preliminary Bacillus species Not Anthracis Assessment and Plan (1) Positive blood culture Status: Acute Code(s): R78.81 - BACTEREMIA SNOMED Code(s): 053987499 (2) Diverticulitis Status: Acute Code(s): K57.92 - DVTRCLI OF INTEST, PART UNSP, W/O PERF OR ABSCESS W/O BLEED SNOMED Code(s): 224416884 (3) Leukocytosis Status: Acute Code(s): D72.829 - ELEVATED WHITE BLOOD CELL COUNT, UNSPECIFIED SNOMED Code(s): 774386563 Plan: 1patient presented to hospital with abdominal pain nausea did have a low-grade fever elevated white count source is likely diverticulitis of the distal end colon seen on the CT without any evidence of complication will need to cover for the enteric gram-negative further rubs and anaerobes 2-Positive blood culture with gram-positive bacilli has been finalized as bacillus not anthracis likely contamination repeat blood culture negative 3-as for his diverticulitis patient seems to have shown clinical improvement white count is slightly elevated however the patient insisting on going home prescription for oral Ceftin and Flagyl has been sent to the pharmacy and a close outpatient follow-up Dictation was produced using [employer] dictation software. please excuse any grammatical, word or spelling errors. Time with Patient: Less than 30
== END 2023-08-17 13:45 | disposition home or self-care (01) ==
LOC: EC 11:52 → 6NMEDSUR 16:15
PROVIDERS: ADMIT Internal Medicine; ATTEND Internal Medicine
DX: R10.9 Unspecified abdominal pain (principal); E11.10 Type 2 diabetes mellitus with ketoacidosis without coma; I10 Essential (primary) hypertension; I25.10 Atherosclerotic heart disease of native coronary artery without angina pectoris; I63.9 Cerebral infarction, unspecified; J18.9 Pneumonia, unspecified organism; Z79.899 Other long term (current) drug therapy; Z80.0 Family history of malignant neoplasm of digestive organs; Z87.440 Personal history of urinary (tract) infections; N39.0 Urinary tract infection, site not specified; N20.0 Calculus of kidney
CPT/HCPCS: 36415; 80053; 80048 ×2; 82150; 83605; 83690; 85025 ×3; 86140; 81001; 87040 ×2; 84145; 74177; G0378 ×4; J2270 ×2; J0696 ×3; J1885; Q9967; J1836 ×4

== ENCOUNTER 2023-08-31 19:43 | Outpatient (CLI) | payer BC ==
--- NOTE | 2023-09-02 08:33 | SLS ---
SLEEP STUDY This is a CPAP titration report. HISTORY OF PRESENT ILLNESS: This patient has severe obstructive sleep apnea with an AHI of 37.5. The patient is coming in for CPAP titration study. PERTINENT PHYSICAL FINDINGS: Height is 5 feet 4 inches, weight is 176, BMI 30.2. TECHNICAL DESCRIPTION: The sleep evaluation of the patient consisted of clinical polysomnography, nocturnal respiratory battery, left and right anterior tibialis surface electromyography. The standard montage for the clinical polysomnography included the EEG, EOG, EMG, and EKG. Respiratory battery included measurements of nasal/buccal airflow, thoracic, and/or abdominal effort and intercostal surface EMG. Nocturnal oxyhemoglobin saturations were obtained by finger oximetry. Digital video and audio monitoring were done throughout the entire night to check or parasomnias. Step-walden titration with positive airway pressure was utilized during the study to control the respiratory events. SLEEP ARCHITECTURE: Total time in bed was 420 minutes. Total sleep time was 364.5 minutes. Sleep efficiency was 86.8 minutes. Latency to sleep onset was 11 minutes and latency to REM sleep was 69 minutes. Sleep architecture was characterized by 10.8% stage I, 67.1% stage II, 0.1% stage III, and 21.9% REM sleep. Total arousal index was 8.6 and wake after sleep onset time was 38.0. RESPIRATORY ANALYSIS: The patient was started on CPAP therapy initially at a CPAP pressure of 4 cm. Pressure was gradually increased by increments of 1 cm to reach a maximum pressure of 7 cm of water. I carefully reviewed the CPAP titration taking into account the patient's sleep stage and body position. Note that the patient was at some different body positions including supine body position and the patient was studied in REM and non-REM sleep. At a pressure of 7, no major obstructive respiratory events and oxygenation improved and this was chosen to be the target CPAP pressures to treat this patient's obstructive sleep apnea. CARDIAC SUMMARY: Average heart rate was 88, minimum heart rate of 84, maximum heart rate of 91, rhythm was sinus. PERIODIC LIMB MOVEMENT ACTIVITY: A total of 29 periodic limb movement activities with an index of 4.8. ASSESSMENT: 1. Severe symptomatic obstructive sleep apnea with an AHI of 37.5. The patient underwent a successful CPAP titration. 2. Chronic hypersomnia secondary to obstructive sleep apnea. 3. History of supraventricular tachycardia x2. 4. Obesity. PLAN: 1. Encouraged weight loss. 2. Initiate CPAP therapy at a pressure of 7 cm of water with a C-flex of 3 and the patient will be given a medium-size AirFit P10 nasal pillows and the patient will see me back in 30 to 90 days to assess clinical response and compliancy. OH / MARC: [id number] /
== END 2023-09-01 06:00 | disposition home or self-care (01) ==
LOC: 3 N SLEEP 19:43
PROVIDERS: ATTEND Internal Medicine Critical Care Medicine
DX: G47.33 Obstructive sleep apnea (adult) (pediatric) (principal); G47.10 Hypersomnia, unspecified; I47.10 Supraventricular tachycardia, unspecified; E66.9 Obesity, unspecified; Z99.89 Dependence on other enabling machines and devices
CPT/HCPCS: 95811

== ENCOUNTER 2024-03-09 14:59 | Emergency (ER) | payer BC ==
[2024-03-09 16:02] LABS: Basophils % (A) 0 %; Eosinophils # (A) 0.1 k/uL (0-0.7); Eosinophils % (A) 1 %; HCT 40.8 % (34.0-46.0); HGB 13.7 gm/dL (11.4-16.0); Lymphocytes # (A) 2.3 k/uL (1.0-4.8); Lymphocytes % (A) 28 %; MCH 29.2 pg (25.0-35.0); MCHC 33.5 g/dL (31.0-37.0); Mean Platelet Volume 7.8; Monocytes # (A) 0.5 k/uL (0-1.0); Monocytes % (A) 6 %; Neutrophils # (A) 5.1 k/uL (1.3-7.7); Neutrophils % (A) 62 %; Platelet Count 307 k/uL (150-450); RBC 4.69 m/uL (3.80-5.40); RDW 13.1 % (11.5-15.5); WBC 8.2 k/uL (3.8-10.6)
--- NOTE | 2024-03-09 16:04 | XR ---
EXAMINATION TYPE: XR chest 2V DATE OF EXAM: 03/09/2024 COMPARISON: 07/19/2021 HISTORY: Shortness of breath TECHNIQUE: Frontal and lateral views of the chest are obtained. FINDINGS: Scattered senescent parenchymal changes noted. Hyperinflation compatible with COPD. No evidence for infiltrate. No evidence for atelectasis. Heart size is stable. Mediastinal structures are stable and grossly unremarkable. No evidence for hilar prominence. Degenerative changes dorsal spine. IMPRESSION: 1. No evidence for acute pulmonary disease.
[2024-03-09 16:11] LABS: INR 0.9 (<1.2); Partial Thromboplastin Time 23.5 sec (22.0-30.0); Prothrombin Time 10.3 sec (10.0-12.5)
[2024-03-09 16:25] LABS: ALT 26 U/L (4-34); AST 25 U/L (14-36); African American GFR (CKD) >90 (>60 ml/min/1.73 sqM); Albumin 4.5 g/dL (3.5-5.0); Alkaline Phosphatase 80 U/L (38-126); Anion Gap 13 mmol/L; Blood Urea Nitrogen 19 mg/dL (7-17); Calcium 9.5 mg/dL (8.4-10.2); Carbon Dioxide 18 mmol/L (22-30); Chloride 108 mmol/L (98-107); Glucose 197 mg/dL (74-99); Non-African American GFR(CKD) >90 (>60 ml/min/1.73 sqM); Potassium 3.6 mmol/L (3.5-5.1); Sodium 139 mmol/L (137-145); Total Bilirubin 0.4 mg/dL (0.2-1.3)
--- NOTE | 2024-03-09 18:10 | CT ---
EXAMINATION TYPE: CT chest angio for PE CT DLP: 358.5 mGycm, Automated exposure control for dose reduction was used. DATE OF EXAM: 03/09/2024 5:42 PM COMPARISON: Chest radiograph from same day. 08/12/2023 CLINICAL INDICATION:Female, 53 years old with history of elevated d-dimer, tachycardia; Elevated D-di linda, tachycardia. TECHNIQUE/CONTRAST: CTA scan of the thorax is performed with IV Contrast, patient injected with 100 mL of Isovue 370, MIP images are created and reviewed these are created on a separate workstation.. FINDINGS: Pulmonary Artery: There is no evidence for a filling defect within the pulmonary vasculature to sugge st acute pulmonary embolism. The pulmonary artery is of normal size. Lungs/Pleura: No evidence of focal consolidation, pleural effusion or pneumothorax. Airway: Large airways are patent. Heart: Heart is within normal limits for size. Vasculature: No evidence of aortic aneurysm. Mediastinum: No gross evidence of adenopathy. Musculoskeletal: Moderate degenerative disc disease changes are present throughout the thoracolumbar spine. Soft Tissues/lymph nodes: Unremarkable. Lower neck: No significant findings. Upper Abdomen: Diffuse low-attenuation to the liver parenchyma. Scattered colonic diverticula. IMPRESSION: 1. No evidence of pulmonary embolism. 2. Scattered colonic diverticula. 3. Hepatic steatosis.
--- NOTE | 2024-03-09 18:11 | ED ---
Arrhythmia/Palpitations HPI - General Chief Complaint: Arrhythmia/Palpitations Stated Complaint: abn EKG Time Seen by Provider: 03/09/24 15:10 Source: patient Mode of arrival: ambulatory - Related Data Home Medications Medication Instructions Recorded Confirmed Losartan Potassium 100 mg PO DAILY 05/08/21 03/09/24 Loratadine [Claritin] 10 mg PO HS 03/09/24 03/09/24 Allergies Allergy/AdvReac Type Severity Reaction Status Date / Time No Known Allergies Allergy Verified 03/09/24 16:10 Review of Systems ROS Statement: Those systems with pertinent positive or pertinent negative responses have been documented in the HPI. ROS Other: All systems not noted in ROS Statement are negative. Past Medical History Past Medical History: GERD/Reflux, Hypertension, Musculoskeletal Disorder Additional Past Medical History / Comment(s): Back pain, disc issues. Occ GERD. Seasonal allergies.SVT History of Any Multi-Drug Resistant Organisms: None Reported Past Surgical History: Bladder Surgery, Hernia Repair, Orthopedic Surgery Additional Past Surgical History / Comment(s): Cervical FUSION C5-C6. D & C. BLADDER SX X 2. BILAT KNEE SX. EPIDURAL Injections Past Anesthesia/Blood Transfusion Reactions: Motion Sickness, Postoperative Nausea & Vomiting (PONV) Past Psychological History: No Psychological Hx Reported Smoking Status: Never smoker Past Alcohol Use History: None Reported Past Drug Use History: None Reported - Past Family History Mother Family Medical History: Deep Vein Thrombosis (DVT) Additional Family Medical History / Comment(s): SUPERFICIAL CLOT IN LEG. (Maternal grandmother had colon cancer) Course Vital Signs 03/09/24 03/09/24 03/09/24 15:07 15:20 16:25 Temperature 97.9 F Pulse Rate 213 H 106 H 101 H Respiratory 20 16 16 Rate Blood Pressure 123/100 112/51 128/74 O2 Sat by Pulse 98 97 98 Oximetry 03/09/24 17:22 Temperature Pulse Rate 85 Respiratory 16 Rate Blood Pressure 140/92 O2 Sat by Pulse 98 Oximetry Medical Decision Making - Medical Decision Making Was pt. sent in by a medical professional or institution (, PA, WELL[employer]ER, urgent care, hospital, or fci...) When possible be specific @ -[No] Did you speak to anyone other than the patient for history (EMS, parent, family, police, friend...)? What history was obtained from this source @ -[No] Did you review nursing and triage notes (agree or disagree)? Why? @ -[I reviewed and agree with nursing and triage notes] Were old charts reviewed (outside hosp., previous admission, EMS record, old EKG, old radiological studies, urgent care reports/EKG's, fci records)? Report findings @ -[No old charts were reviewed] Differential Diagnosis (chest pain, altered mental status, abdominal pain women, abdominal pain men, vaginal bleeding, weakness, fever, dyspnea, syncope, headache, dizziness, GI bleed, back pain, seizure, CVA, palpatations, mental health, musculoskeletal)? @ -[not applicable] EKG interpreted by me (3pts min.). @ -First EKG completed at 1506 demonstrates wide-complex tachycardia with a rate of 216. QRS 129. QTc of 310. Repeat EKG done at 1514 demonstrates sinus tachycardia with a rate of 110. AR interval 132. QRS 86. QTc of 388. No acute ST segment elevations or depressions X-rays interpreted by me (1pt min.). @ -[None done] CT interpreted by me (1pt min.). @ -[None done] U/S interpreted by me (1pt. min.). @ -[None done] What testing was considered but not performed or refused? (CT, X-rays, U/S, labs)? Why? @ -[None] What meds were considered but not given or refused? Why? @ -[None] Did you discuss the management of the patient with other professionals (professionals i.e. , PA, [employer]ER, lab, RT, psych nurse, social insurance analyst, non licensed nuclear plant operator, teacher, financial services officer, case briefer)? Give summary @ -[No] Was smoking cessation discussed for >3mins.? @ -[No] Was critical care preformed (if so, how long)? @ -[No] Were there social determinants of health that impacted care today? How? (Homelessness, low income, unemployed, alcoholism, drug addiction, transportation, low edu. Level, literacy, decrease access to med. care, fdc, rehab)? @ -[No] Was there de-escalation of care discussed even if they declined (Discuss DNR or withdrawal of care, Hospice)? DNR status @ -[No] What co-morbidities impacted this encounter? (DM, HTN, Smoking, COPD, CAD, Cancer, CVA, ARF, Chemo, Hep., AIDS, mental health diagnosis, sleep apnea, morbid obesity)? @ -[None] Was patient admitted / discharged? Hospital course, mention meds given and route, prescriptions, significant lab abnormalities, going to OR and other pertinent info. @ -[hospital course] Undiagnosed new problem with uncertain prognosis? @ -[No] Drug Therapy requiring intensive monitoring for toxicity (Heparin, Nitro, Insulin, Cardizem)? @ -[No] Were any procedures done? @ -[No] Diagnosis/symptom? @ -[default] Acute, or Chronic, or Acute on Chronic? @ -[default] Uncomplicated (without systemic symptoms) or Complicated (systemic symptoms)? @ -[default] Side effects of treatment? @ -[No] Exacerbation, Progression, or Severe Exacerbation? @ -[No] Poses a threat to life or bodily function? How? (Chest pain, [place], [place], pneumonia, PE, COPD, DKA, ARF, appy, cholecystitis, CVA, Diverticulitis, Homicidal, Suicidal, threat to staff... and all critical care pts) @ -[No] - Lab Data Result diagrams: 03/09/24 15:27 03/09/24 15:27 Lab Results 03/09/24 03/09/24 03/09/24 Range/Units 15:27 15:27 15:27 WBC 8.2 (3.8-10.6) k/uL RBC 4.69 (3.80-5.40) m/uL Hgb 13.7 (11.4-16.0) gm/dL Hct 40.8 (34.0-46.0) % MCV 87.0 (80.0-100.0) fL MCH 29.2 (25.0-35.0) pg MCHC 33.5 (31.0-37.0) g/dL RDW 13.1 (11.5-15.5) % Plt Count 307 (150-450) k/uL MPV 7.8 Neutrophils % 62 % Lymphocytes % 28 % Monocytes % 6 % Eosinophils % 1 % Basophils % 0 % Neutrophils # 5.1 (1.3-7.7) k/uL Lymphocytes # 2.3 (1.0-4.8) k/uL Monocytes # 0.5 (0-1.0) k/uL Eosinophils # 0.1 (0-0.7) k/uL Basophils # 0.0 (0-0.2) k/uL PT 10.3 (10.0-12.5) sec INR 0.9 (<1.2) APTT 23.5 (22.0-30.0) sec D-Dimer (<0.60) mg/L FEU Sodium 139 (137-145) mmol/L Potassium 3.6 (3.5-5.1) mmol/L Chloride 108 H (98-107) mmol/L Carbon Dioxide 18 L (22-30) mmol/L Anion Gap 13 mmol/L BUN 19 H (7-17) mg/dL Creatinine 0.69 (0.52-1.04) mg/dL Est GFR (CKD-EPI)AfAm >90 (>60 ml/min/1.73 sqM) Est GFR (CKD-EPI)NonAf >90 (>60 ml/min/1.73 sqM) Glucose 197 H (74-99) mg/dL Calcium 9.5 (8.4-10.2) mg/dL Magnesium 2.0 (1.6-2.3) mg/dL Total Bilirubin 0.4 (0.2-1.3) mg/dL AST 25 (14-36) U/L ALT 26 (4-34) U/L Alkaline Phosphatase 80 (38-126) U/L Troponin I (0.000-0.034) ng/mL Total Protein 7.0 (6.3-8.2) g/dL Albumin 4.5 (3.5-5.0) g/dL TSH 1.390 (0.465-4.680) mIU/L 03/09/24 03/09/24 Range/Units 15:27 15:27 WBC (3.8-10.6) k/uL RBC (3.80-5.40) m/uL Hgb (11.4-16.0) gm/dL Hct (34.0-46.0) % MCV (80.0-100.0) fL MCH (25.0-35.0) pg MCHC (31.0-37.0) g/dL RDW (11.5-15.5) % Plt Count (150-450) k/uL MPV Neutrophils % % Lymphocytes % % Monocytes % % Eosinophils % % Basophils % % Neutrophils # (1.3-7.7) k/uL Lymphocytes # (1.0-4.8) k/uL Monocytes # (0-1.0) k/uL Eosinophils # (0-0.7) k/uL Basophils # (0-0.2) k/uL PT (10.0-12.5) sec INR (<1.2) APTT (22.0-30.0) sec D-Dimer 0.66 H (<0.60) mg/L FEU Sodium (137-145) mmol/L Potassium (3.5-5.1) mmol/L Chloride (98-107) mmol/L Carbon Dioxide (22-30) mmol/L Anion Gap mmol/L BUN (7-17) mg/dL Creatinine (0.52-1.04) mg/dL Est GFR (CKD-EPI)AfAm (>60 ml/min/1.73 sqM) Est GFR (CKD-EPI)NonAf (>60 ml/min/1.73 sqM) Glucose (74-99) mg/dL Calcium (8.4-10.2) mg/dL Magnesium (1.6-2.3) mg/dL Total Bilirubin (0.2-1.3) mg/dL AST (14-36) U/L ALT (4-34) U/L Alkaline Phosphatase (38-126) U/L Troponin I <0.012 (0.000-0.034) ng/mL Total Protein (6.3-8.2) g/dL Albumin (3.5-5.0) g/dL TSH (0.465-4.680) mIU/L Disposition Clinical Impression: Tachycardia, SVT (supraventricular tachycardia) Disposition: HOME SELF-CARE Condition: Stable Instructions (If sedation given, give patient instructions): Supraventricular Tachycardia (ED) Additional Instructions: Please follow-up with Dr. Marques for management of your rapid heart rate and return for any new or worsening symptoms Is patient prescribed a controlled substance at d/c from ED?: No Referrals: Pedro Pratt MD [Primary Care Provider] - 1-2 days Que Marques MD [STAFF PHYSICIAN] - 1-2 days Time of Disposition: 18:25
[2024-03-09 18:38] VITALS: BP 146/86; PULSE 87; RESP 18; TEMP 98.1
== END 2024-03-09 18:37 | disposition home or self-care (01) ==
LOC: EC 14:59 → SUPCPDRO 14:59 → EC 18:37
DX: I47.10 Supraventricular tachycardia, unspecified (principal)
CPT/HCPCS: 36415; 93005; 85379; 80053; 84443; 83735; 84484; 85025; 85610; 85730; 71046; 71275; 99285; Q9967

== ENCOUNTER → 2024-05-02 | Outpatient (CLI) | payer BC ==
[2024-05-02 18:23] LABS: HCT 40.8 % (37.2-46.3); HGB 13.8 g/dL (12.0-15.0); MCH 29.6 pg (27.0-32.0); MCHC 33.8 g/dL (32.0-37.0); MCV 87.4 FL (80.0-97.0); Mean Platelet Volume 9.2 FL (9.5-12.2); NRBC Per 100 WBC 0 X 10*3/uL (0.00-0.01); Platelet Count 335 X 10*3/uL (140-440); RBC 4.67 X 10*6/uL (4.10-5.20); RDW 12.7 % (11.5-14.5); WBC 8.59 X 10*3/uL (4.50-10.00)
[2024-05-02 19:17] LABS: Carbon Dioxide 25.4 mmol/L (21.6-31.8); Chloride 101 mmol/L (96-109); Potassium 4.6 mmol/L (3.5-5.5); Sodium 138 mmol/L (135-145)
== END | disposition home or self-care (01) ==
LOC: LABPAT 12:29
PROVIDERS: ATTEND Internal Medicine Clinical Cardiac Electrophysiology
DX: Z01.818 Encounter for other preprocedural examination
CPT/HCPCS: 80051; 82565; 84520; 85027

== ENCOUNTER 2024-05-05 08:46 | Day surgery (SDC) | payer BC ==
[2024-05-02 15:33] VITALS: BMI 30.1
[2024-05-05] MEDS: IV FLUID CONTINUATION 1,000 ML IV ONE (08:57)
[2024-05-05] MEDS: SODIUM CHLORIDE 0.9% 1,000 ML IV SCH (08:57)
[2024-05-05] MEDS: MIDAZOLAM 2 MG/2 ML VIAL IV ONE (09:18)
[2024-05-05 09:22] LABS: Basophils % (A) 1 %; Eosinophils # (A) 0.2 k/uL (0-0.7); Eosinophils % (A) 2 %; HCT 41.2 % (34.0-46.0); HGB 13.9 gm/dL (11.4-16.0); Lymphocytes # (A) 2.2 k/uL (1.0-4.8); Lymphocytes % (A) 31 %; MCH 29.4 pg (25.0-35.0); MCHC 33.8 g/dL (31.0-37.0); Mean Platelet Volume 6.8; Monocytes # (A) 0.4 k/uL (0-1.0); Monocytes % (A) 5 %; Neutrophils # (A) 4.4 k/uL (1.3-7.7); Neutrophils % (A) 60 %; Platelet Count 358 k/uL (150-450); RBC 4.74 m/uL (3.80-5.40); WBC 7.3 k/uL (3.8-10.6)
[2024-05-05 09:31] LABS: ALT 27 U/L (4-34); AST 29 U/L (14-36); African American GFR (CKD) >90 (>60 ml/min/1.73 sqM); Albumin 4.8 g/dL (3.5-5.0); Alkaline Phosphatase 74 U/L (38-126); Anion Gap 9 mmol/L; Blood Urea Nitrogen 15 mg/dL (7-17); Calcium 9.8 mg/dL (8.4-10.2); Carbon Dioxide 27 mmol/L (22-30); Chloride 104 mmol/L (98-107); Glucose 109 mg/dL (74-99); Non-African American GFR(CKD) >90 (>60 ml/min/1.73 sqM); Potassium 4.7 mmol/L (3.5-5.1); Sodium 140 mmol/L (137-145); Total Bilirubin 0.8 mg/dL (0.2-1.3); Total Protein 7.5 g/dL (6.3-8.2)
[2024-05-05] MEDS: LIDOCAINE 1% INJ 10MG/ML (20 ML MDV) SQ ONE (11:14)
[2024-05-05] MEDS ORDERED: MIDAZOLAM 2 MG/2 ML VIAL ONE (11:29)
[2024-05-05] MEDS ORDERED: ISOPROTERENOL 250 MCG/1.25 ML SYR IV ONE (11:29)
[2024-05-05] MEDS ORDERED: fentaNYL (PF) 50 MCG/ML 2 ML AMP ONE (11:29)
[2024-05-05] MEDS: HEPARIN SODIUM,PORCINE 10,000 UNIT in SODIUM CHLORIDE 0.9% 1,000 ML IRRIGATION ONE (11:30)
[2024-05-05] MEDS: ROPIVACAINE 5 MG/ML 30 ML VIAL MISCELLANE ONE (12:16)
[2024-05-05] MEDS: HEPARIN SODIUM (1,000 UNIT/ML) 1,000 UNIT in SODIUM CHLORIDE 0.9% 1,000 ML IRRIGATION ONE (13:44)
[2024-05-05] MEDS ORDERED: ACETAMINOPHEN TAB 325 MG TAB PO PRN (14:45)
--- NOTE | 2024-05-05 14:54 | P.EPPROC ---
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 Written informed consent was obtained prior to the procedure. Venous sheaths were placed in the right left femoral veins and diagnostic catheters were positioned in the high right atrium, His bundle area, coronary sinus, right ventricle Sinus cycle length 824 ms, QRS interval 99 ms, MA interval 125 ms and QT interval 430 ms AH 91 ms and HV interval 30 ms Para-Hisian pacing revealed a berkley response Sinus node recovery times were 994, 1085 and 1008 9 ms. AV node Wenckebach block 340 ms VA Wenckebach block 340 ms AV node Wenckebach block from the coronary sinus was 260 ms Straight pacing, atrial and ventricular extra stimulation was performed from multiple sites but SVT could not be induced without Isopril High-dose Isopril started SVT induced with double extrastimuli from the coronary sinus os at 400\200\200 ms Onset with a long MA interval, septal time of less than 60 ms at the coronary sinus os Ventricular pacing could not entrain the tachycardia but dissociated the tachycardia A long sheath and an irrigated catheter was used to map the slow pathway Slow pathway was mapped. Junctional rhythm was obtained. RF ablation applied at this site and around it. Later extended to the coronary sinus os into the coronary sinus roof Finally this rendered the tachycardia noninducible On high-dose Isopril double extrastimuli did not induce any SVT AV node Wenckebach block induced left bundle aberrancy The MA interval at the end of the procedure was 127 ms Patient tolerated procedure well without any acute complications All access sheaths were closed with Vascade device on the left side and Perclose on the right side
--- NOTE | 2024-05-05 14:55 | P.PRLE ---
RE: Tiffany Randall Dear Pedro Patient underwent a diagnostic EP study for the evaluation of SVT with left bundle aberrancy. AV berkley reentry was induced and successfully ablated Following that the tachycardia was rendered noninducible She will continue losartan 100 mg p.o. daily and we will continue to follow-up with you and Dr. Talbert as before Thank you for entrusting me with the care of the patient Warm regards Sincerely Que Marques
[2024-05-05] MEDS: LACTATED RINGERS 1,000 ML IV SCH (17:19)
[2024-05-05] MEDS: ACETAMINOPHEN IV (For NPO) 1,000 MG in EMPTY BAG 1 BAG IVPB ONE (17:19)
--- NOTE | 2024-05-06 08:02 | P.DS ---
Providers Date of admission: Patient is doing well. 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 Talbert Continue antihypertensive therapy with losartan Attending physician: Que Marques Primary care physician: Pedro Pratt MD Plan - Discharge Summary Discharge Rx Participant: Yes New Discharge Prescriptions: Continue RX: Loratadine [Claritin] 10 mg PO HS RX: Losartan Potassium 100 mg PO DAILY Discharge Medication List RX: Losartan Potassium 100 mg PO DAILY 05/08/21 [History] RX: Loratadine [Claritin] 10 mg PO HS 03/09/24 [History] Follow up Appointment(s)/Referral(s): Kayla Talbert MD [STAFF PHYSICIAN] - 1 Week Activity/Diet/Wound Care/Special Instructions: Post EP study - Ablation instructions 1. Keep access sites dry for 2 days. 2. No heavy lifting or straining for 2 days. 3. Avoid bending the hips repeatedly for 2 days. 4. You may go up and down stairs slowly Call if the following is noted 1. Bleeding, increasing swelling or pain at the access sites. 2. Increasing chest discomfort, especially upon taking a deep breath. 3. Increasing shortness of breath, at rest or with exertion. 4. Undue cough / phlegm 5. Difficulty or pain while swallowing. 6. Pain or change in color in the extremities. 7. Fever, chills, rigors. 8. Increasing headache or neurologic symptoms. 9. Dizziness, fainting, palpitations Discharge Disposition: HOME SELF-CARE
[2024-05-06] MEDS: LOSARTAN 50 MG TAB PO SCH (08:38)
[2024-05-06 09:21] VITALS: BP 133/79; PULSE 98; RESP 16; TEMP 98.9
== END 2024-05-06 09:55 | disposition home or self-care (01) ==
LOC: CATHEP 08:46 → 6NMEDSUR 14:32 → CATHEP 05-06 09:55
PROVIDERS: ATTEND Internal Medicine Clinical Cardiac Electrophysiology
DX: I47.19 Other supraventricular tachycardia (principal); I10 Essential (primary) hypertension; I44.1 Atrioventricular block, second degree; I44.7 Left bundle-branch block, unspecified; Z79.899 Other long term (current) drug therapy
CPT/HCPCS: 80053; 81025; 84443; 85025; 93623; 93653

== ENCOUNTER 2024-12-31 19:04 | Emergency (ER) | payer BC ==
--- NOTE | 2024-12-31 19:37 | ED ---
Abdominal Pain HPI - General Chief Complaint: Abdominal Pain Stated Complaint: Back/Abd Pain Time Seen by Provider: 12/31/24 19:16 Source: patient, RN notes reviewed Mode of arrival: ambulatory Limitations: no limitations - History of Present Illness Initial Comments: 54-year-old female presenting to the emergency department with multiple complaints. Patient states over the past month she has been experiencing URI symptoms with intermittent rhinorrhea, dry cough, congestion. Additionally, she states that over the past day she has been experiencing abdominal pain, bloating and left lower quadrant tenderness. Denies diarrhea, bloody stools, dark or sticky stools, dysuria, increased urinary frequency or urgency. Endorses chills with no reported fevers. Endorses nausea with no reported emesis. Patient states that abdominal pain feels similar to when she had a history of diverticulitis few years ago. - Related Data Home Medications Medication Instructions Recorded Confirmed Losartan Potassium 100 mg PO DAILY 05/08/21 05/05/24 Loratadine [Claritin] 10 mg PO HS 03/09/24 05/02/24 Previous Rx's Medication Instructions Recorded Amoxic-Pot Clav 875-125Mg 1 tab PO Q8H 5 Days #14 tab 12/31/24 [Augmentin 875-125] Allergies Allergy/AdvReac Type Severity Reaction Status Date / Time No Known Allergies Allergy Verified 12/31/24 19:11 Review of Systems ROS Statement: Those systems with pertinent positive or pertinent negative responses have been documented in the HPI. ROS Other: All systems not noted in ROS Statement are negative. Past Medical History Past Medical History: GERD/Reflux, Hypertension, Musculoskeletal Disorder, Sleep Apnea/CPAP/BIPAP, Supraventricular Tachycardia (SVT) Additional Past Medical History / Comment(s): Back pain, disc issues. Occ GERD. Seasonal allergies. SVT, USES C PAP History of Any Multi-Drug Resistant Organisms: None Reported Past Surgical History: Bladder Surgery, Hernia Repair, Orthopedic Surgery Additional Past Surgical History / Comment(s): Cervical FUSION C5-C6. D & C. BLADDER SX X 2. BILAT KNEE SX. EPIDURAL Injections Past Anesthesia/Blood Transfusion Reactions: Motion Sickness, Postoperative Nausea & Vomiting (PONV) Past Psychological History: No Psychological Hx Reported Smoking Status: Never smoker Past Alcohol Use History: None Reported Past Drug Use History: None Reported - Past Family History Mother Family Medical History: Deep Vein Thrombosis (DVT) Additional Family Medical History / Comment(s): SUPERFICIAL CLOT IN LEG. (Maternal grandmother had colon cancer) General Exam Limitations: no limitations General appearance: alert, in no apparent distress ENT exam: Present: normal exam, mucous membranes moist Neck exam: Present: normal inspection. Absent: tenderness, meningismus, lymphadenopathy Respiratory exam: Present: normal lung sounds bilaterally. Absent: respiratory distress, wheezes, rales, rhonchi, stridor Cardiovascular Exam: Present: regular rate, normal rhythm, normal heart sounds. Absent: systolic murmur, diastolic murmur, rubs, gallop, clicks GI/Abdominal exam: Present: soft, tenderness (LLQ), normal bowel sounds. Absent : distended, guarding, rebound, rigid Extremities exam: Present: normal inspection, full ROM, normal capillary refill. Absent: tenderness, pedal edema, joint swelling, calf tenderness Back exam: Present: normal inspection. Absent: CVA tenderness (R), CVA tenderness (L) Skin exam: Present: warm, dry, intact, normal color. Absent: rash Course Vital Signs 12/31/24 12/31/24 12/31/24 19:08 20:07 21:15 Temperature 99.2 F 100.6 F H Pulse Rate 121 H 117 H 109 H Respiratory 19 18 18 Rate Blood Pressure 175/102 163/101 133/88 O2 Sat by Pulse 98 98 100 Oximetry Medical Decision Making - Medical Decision Making Was pt. sent in by a medical professional or institution (, PA, FIRE DEPARTMENT MARINE ENGINEER, urgent care, hospital, or [place] health care facility...) When possible be specific @ -No Did you speak to anyone other than the patient for history (EMS, parent, family, police, friend...)? What history was obtained from this source @ -No Did you review nursing and triage notes (agree or disagree)? Why? @ -I reviewed and agree with nursing and triage notes Were old charts reviewed (outside hosp., previous admission, EMS record, old EKG, old radiological studies, urgent care reports/EKG's, [place] health care facility records)? Report findings @ -No old charts were reviewed Differential Diagnosis (chest pain, altered mental status, abdominal pain women, abdominal pain men, vaginal bleeding, weakness, fever, dyspnea, syncope, headache, dizziness, GI bleed, back pain, seizure, CVA, palpatations, mental health, musculoskeletal)? @ -Differential Abdominal Pain Women: Appendicitis, Cholecystitis, diverticulosis, ischemic bowel, pancreatitis, hepatitis, UTI, gastroenteritis, AAA, incarcerated hernia, bowel obstruction, constipation, inflammatory bowel, hepatitis, peptic ulcer disease, splenic infarction, perforated viscus, vulvitis, ovarian torsion, PID, kidney stone, placenta abruption, this is not meant to be an all-inclusive list EKG interpreted by me (3pts min.). @ -None X-rays interpreted by me (1pt min.). @ -None done CT interpreted by me (1pt min.). @ -CT of the abdomen pelvis with IV contrast reveals sigmoid colon diverticulitis without evidence of fluid collection or perforation with a nonobstructing right renal calculus U/S interpreted by me (1pt. min.). @ -None done What testing was considered but not performed or refused? (CT, X-rays, U/S, labs)? Why? @ -None What meds were considered but not given or refused? Why? @ -None Did you discuss the management of the patient with other professionals (professionals i.e. , PA, FIRE DEPARTMENT MARINE ENGINEER, lab, RT, psych nurse, social services analyst, stove bottom worker, teacher, sanitation officer, foster care case manager)? Give summary @ -No Was smoking cessation discussed for >3mins.? @ -No Was critical care preformed (if so, how long)? @ -No Were there social determinants of health that impacted care today? How? (Homelessness, low income, unemployed, alcoholism, drug addiction, transportation, low edu. Level, literacy, decrease access to med. care, care home, rehab)? @ -No Was there de-escalation of care discussed even if they declined (Discuss DNR or withdrawal of care, Hospice)? DNR status @ -No What co-morbidities impacted this encounter? (DM, HTN, Smoking, COPD, CAD, Cancer, CVA, ARF, Chemo, Hep., AIDS, mental health diagnosis, sleep apnea, morbid obesity)? @ -None Was patient admitted / discharged? Hospital course, mention meds given and route, prescriptions, significant lab abnormalities, going to OR and other pertinent info. @ -Discharge. 54-year-old female presenting to the emergency department with complaints of abdominal pain and URI symptoms. Patient is tachycardic on arrival with a borderline temperature department dose of Tylenol. Abdominal pain is reproducible in the left lower quadrant. Patient was offered additional pain medication was declined stating that Tylenol be sufficient. Laboratory testing including CBC and CMP is unremarkable. Urinalysis reveals large amount of blood. Viral testing is negative. Chest x-ray no acute process. CT of the abdomen pelvis with IV contrast reveals concern for sigmoid colon diverticulitis. Patient's recheck of vitals reveals that she is still febrile and tachycardic in spite of dose of Motrin. Patient will be discharged with outpatient prescription for Augmentin is provided with initial dose in the emergency room. Return parameters discussed. case discussed with Dr. Bejarano Undiagnosed new problem with uncertain prognosis? @ -No Drug Therapy requiring intensive monitoring for toxicity (Heparin, Nitro, Insulin, Cardizem)? @ -No Were any procedures done? @ -No Diagnosis/symptom? @ -Diverticulitis Acute, or Chronic, or Acute on Chronic? @ -Acute Uncomplicated (without systemic symptoms) or Complicated (systemic symptoms)? @ -Uncomplicated Side effects of treatment? @ -No Exacerbation, Progression, or Severe Exacerbation? @ -No Poses a threat to life or bodily function? How? (Chest pain, [place], PR, pneumonia, PE, COPD, DKA, ARF, appy, cholecystitis, CVA, Diverticulitis, Homicidal, Suicidal, threat to staff... and all critical care pts) @ -No - Lab Data Result diagrams: 12/31/24 19:53 12/31/24 19:53 Lab Results 12/31/24 12/31/24 12/31/24 Range/Units 19:53 19:53 19:53 WBC 10.89 H (4.50-10.00) 10*3/uL RBC 4.24 (4.10-5.20) 10*6/uL Hgb 12.5 (12.0-15.0) g/dL Hct 36.0 L (37.2-46.3) % MCV 84.9 (80.0-97.0) fL MCH 29.5 (27.0-32.0) pg MCHC 34.7 (32.0-37.0) g/dL Plt Count 287 (140-440) 10*3/uL MPV 8.7 L (9.5-12.2) fL Immature Gran % (Auto) 0.3 % Neutrophils % 69.0 % Lymphocytes % 18.5 % Monocytes % 9.0 % Eosinophils % 2.8 % Basophils % 0.4 % Immature Gran # 0.03 (0.00-0.04) 10*3/uL Neutrophils # 7.51 (1.80-7.70) 10*3/uL Lymphocytes # 2.02 (0.90-5.00) 10*3/uL Monocytes # 0.98 (0.20-1.00) 10*3/uL Eosinophils # 0.31 (0.04-0.35) 10*3/uL Basophils # 0.04 (0.00-0.10) 10*3/uL Sodium 139 (137-145) mmol/L Potassium 3.7 (3.5-5.1) mmol/L Chloride 108 H (98-107) mmol/L Carbon Dioxide 23 (22-30) mmol/L Anion Gap 8 mmol/L BUN 13 (7-17) mg/dL Creatinine 0.65 (0.52-1.04) mg/dL Est GFR (CKD-EPI)AfAm >90 (>60 ml/min/1.73 sqM) Est GFR (CKD-EPI)NonAf >90 (>60 ml/min/1.73 sqM) Glucose 147 H (74-99) mg/dL Plasma Lactic Acid Go 1.9 (0.7-2.0) mmol/L Calcium 9.3 (8.4-10.2) mg/dL Total Bilirubin 0.5 (0.2-1.3) mg/dL AST 24 (14-36) U/L ALT 29 (4-34) U/L Alkaline Phosphatase 68 (38-126) U/L Total Protein 6.7 (6.3-8.2) g/dL Albumin 4.1 (3.5-5.0) g/dL Lipase 111 (23-300) U/L Urine Color Urine Appearance (Clear) Urine pH (5.0-8.0) Ur Specific Bland (1.001-1.035) Urine Protein (Negative) Urine Glucose (UA) (Negative) Urine Ketones (Negative) Urine Blood (Negative) Urine Nitrite (Negative) Urine Bilirubin (Negative) Urine Urobilinogen (<2.0) mg/dL Ur Leukocyte Esterase (Negative) Urine RBC (0-5) /hpf Urine WBC (0-5) /hpf Ur Squamous Epith Cells (0-4) /hpf Urine Bacteria (None) /hpf Influenza Type A (PCR) (Not Detectd) Influenza Type B (PCR) (Not Detectd) RSV (PCR) (Not Detectd) SARS-CoV-2 (PCR) (Not Detectd) 12/31/24 12/31/24 Range/Units 20:03 20:03 WBC (4.50-10.00) 10*3/uL RBC (4.10-5.20) 10*6/uL Hgb (12.0-15.0) g/dL Hct (37.2-46.3) % MCV (80.0-97.0) fL MCH (27.0-32.0) pg MCHC (32.0-37.0) g/dL Plt Count (140-440) 10*3/uL MPV (9.5-12.2) fL Immature Gran % (Auto) % Neutrophils % % Lymphocytes % % Monocytes % % Eosinophils % % Basophils % % Immature Gran # (0.00-0.04) 10*3/uL Neutrophils # (1.80-7.70) 10*3/uL Lymphocytes # (0.90-5.00) 10*3/uL Monocytes # (0.20-1.00) 10*3/uL Eosinophils # (0.04-0.35) 10*3/uL Basophils # (0.00-0.10) 10*3/uL Sodium (137-145) mmol/L Potassium (3.5-5.1) mmol/L Chloride (98-107) mmol/L Carbon Dioxide (22-30) mmol/L Anion Gap mmol/L BUN (7-17) mg/dL Creatinine (0.52-1.04) mg/dL Est GFR (CKD-EPI)AfAm (>60 ml/min/1.73 sqM) Est GFR (CKD-EPI)NonAf (>60 ml/min/1.73 sqM) Glucose (74-99) mg/dL Plasma Lactic Acid Go (0.7-2.0) mmol/L Calcium (8.4-10.2) mg/dL Total Bilirubin (0.2-1.3) mg/dL AST (14-36) U/L ALT (4-34) U/L Alkaline Phosphatase (38-126) U/L Total Protein (6.3-8.2) g/dL Albumin (3.5-5.0) g/dL Lipase (23-300) U/L Urine Color Colorless Urine Appearance Clear (Clear) Urine pH 6.0 (5.0-8.0) Ur Specific Bland 1.017 (1.001-1.035) Urine Protein Negative (Negative) Urine Glucose (UA) Negative (Negative) Urine Ketones Negative (Negative) Urine Blood Large H (Negative) Urine Nitrite Negative (Negative) Urine Bilirubin Negative (Negative) Urine Urobilinogen <2.0 (<2.0) mg/dL Ur Leukocyte Esterase Negative (Negative) Urine RBC 29 H (0-5) /hpf Urine WBC 7 H (0-5) /hpf Ur Squamous Epith Cells <1 (0-4) /hpf Urine Bacteria Occasional H (None) /hpf Influenza Type A (PCR) Not Detected (Not Detectd) Influenza Type B (PCR) Not Detected (Not Detectd) RSV (PCR) Not Detected (Not Detectd) SARS-CoV-2 (PCR) Not Detected (Not Detectd) Disposition Clinical Impression: Diverticulitis Disposition: HOME SELF-CARE Condition: Stable Instructions (If sedation given, give patient instructions): Diverticulitis (ED) Additional Instructions: Please return to the Emergency Department if symptoms worsen or any other concerns. Complete full course of Augmentin as prescribed. Recommend that you follow a liquid diet and minimize the amount of fiber that you intake over the next 5 days. Prescriptions: Amoxic-Pot Clav 875-125Mg [Augmentin 875-125] 1 tab PO Q8H 5 Days #14 tab Is patient prescribed a controlled substance at d/c from ED?: No Referrals: Pedro Pratt MD [Primary Care Provider] - 1-2 days Time of Disposition: 21:30
[2024-12-31 20:04] LABS: Basophils # (A) 0.04 10*3/uL (0.00-0.10); Basophils % (A) 0.4 %; Eosinophils # (A) 0.31 10*3/uL (0.04-0.35); Eosinophils % (A) 2.8 %; HGB 12.5 g/dL (12.0-15.0); Lymphocytes # (A) 2.02 10*3/uL (0.90-5.00); Lymphocytes % (A) 18.5 %; MCH 29.5 pg (27.0-32.0); MCHC 34.7 g/dL (32.0-37.0); MCV 84.9 fL (80.0-97.0); Mean Platelet Volume 8.7 fL (9.5-12.2); Monocytes # (A) 0.98 10*3/uL (0.20-1.00); Neutrophils # (A) 7.51 10*3/uL (1.80-7.70); Platelet Count 287 10*3/uL (140-440); RBC 4.24 10*6/uL (4.10-5.20); RDW 12.9 % (11.5-14.5); WBC 10.89 10*3/uL (4.50-10.00)
[2024-12-31] MEDS: ACETAMINOPHEN TAB 500 MG TAB PO STA (20:04)
--- NOTE | 2024-12-31 20:07 | XR ---
EXAMINATION TYPE: XR chest 2V DATE OF EXAM: 12/31/2024 8:01 PM COMPARISON: Chest radiographs from 03/09/2024. CLINICAL INDICATION: Female, 54 years old with history of cough X 1 month; [facility] TECHNIQUE: XR chest 2V Frontal and lateral views of the chest. FINDINGS: Lungs/Pleura: There is no evidence of pleural effusion, focal consolidation, or pneumothorax. Pulmonary vascularity: Unremarkable. Heart/mediastinum: Cardiomediastinal silhouette is unremarkable. Musculoskeletal: No acute osseous pathology. There is fixation hardware in the lower cervical spine. IMPRESSION: No acute cardiopulmonary disease/process. [facility], , 12/31/2024 8:04 PM
[2024-12-31 20:13] VITALS: RESP 18
[2024-12-31 20:21] LABS: ALT 29 U/L (4-34); AST 24 U/L (14-36); African American GFR (CKD) >90 (>60 ml/min/1.73 sqM); Albumin 4.1 g/dL (3.5-5.0); Alkaline Phosphatase 68 U/L (38-126); Anion Gap 8 mmol/L; Blood Urea Nitrogen 13 mg/dL (7-17); Calcium 9.3 mg/dL (8.4-10.2); Carbon Dioxide 23 mmol/L (22-30); Chloride 108 mmol/L (98-107); Glucose 147 mg/dL (74-99); Lipase 111 U/L (23-300); Non-African American GFR(CKD) >90 (>60 ml/min/1.73 sqM); Potassium 3.7 mmol/L (3.5-5.1); Sodium 139 mmol/L (137-145); Total Bilirubin 0.5 mg/dL (0.2-1.3); Total Protein 6.7 g/dL (6.3-8.2)
[2024-12-31 20:30] LABS: Appearance,Urine Clear (Clear); Bacteria,Urine Occasional /hpf; Bilirubin,Urine Negative (Negative); Blood,Urine Large (Negative); Color,Urine Colorless; Glucose,Urine (UA) Negative (Negative); Ketones,Urine Negative (Negative); Leukocyte Esterase,Urine Negative (Negative); Nitrite,Urine Negative (Negative); Protein,Urine Negative (Negative); RBC,Urine 29 /hpf (0-5); Specific Gravity,Urine 1.017 (1.001-1.035); Squamous Epithelial Cell,Urine <1 /hpf (0-4); Urobilinogen,Urine <2.0 mg/dL (<2.0); WBC,Urine 7 /hpf (0-5)
[2024-12-31 20:56] LABS: Influenza A Not Detected (Not Detectd); Influenza B Not Detected (Not Detectd); RSV Not Detected (Not Detectd)
--- NOTE | 2024-12-31 21:08 | CT ---
EXAMINATION TYPE: CT abdomen pelvis w con DATE OF EXAM: 12/31/2024 8:49 PM COMPARISON: 08/14/2023 CLINICAL INDICATION: Female, 54 years old with history of LLQ ab pain, hx diverticulitis; Pt c/o low back pain, abd pain, bloating. possible diverticulitis flare. Scanned by ABC iso 300 100mL TECHNIQUE: Axial CT abdomen pelvis w con;Sagittal and coronal reformats were created on a separate w orkstation. Contrast used:100 mL of Isovue 300 with IV Contrast, (none if empty) Oral contrast used: without Oral Contrast (none if empty) CT DLP: 1075 mGycm, Automated exposure control for dose reduction was used. FINDINGS: LOWER CHEST: Unremarkable ABDOMEN LIVER: Diffusely hypoattenuating parenchyma. GALLBLADDER AND BILE DUCTS: Unremarkable. PANCREAS: Unremarkable. SPLEEN: Unremarkable. ADRENAL GLANDS: Unremarkable. KIDNEYS AND URETERS: No evidence of hydronephrosis or obstructing renal calculus. The ureters are unr emarkable. Nonobstructing right 2 mm calculus. PELVIS BLADDER: No evidence for wall thickening or mass given limitations of exam. REPRODUCTIVE: Unremarkable. ABDOMEN & PELVIS STOMACH AND BOWEL: There are colonic diverticula present, one of which has adjacent fat stranding zbigniew nges. No organizing fluid collection or evidence of pneumoperitoneum. No evidence of bowel obstructio n. PERITONEUM/RETROPERITONEUM: No evidence of pneumoperitoneum or free fluid. VASCULATURE: Mild atherosclerotic calcifications are present throughout the abdominal aorta and its b ranches. No evidence of aortic aneurysm. Large severe degeneration changes of the hips secondary to o steophyte formation and disc space narrowing. MUSCULOSKELETAL: No acute osseous abnormalities LYMPH NODES: No gross evidence for lymphadenopathy. SOFT TISSUE/ABDOMINAL WALL: Fat-containing umbilical hernia.e IMPRESSION: 1. Sigmoid colon diverticulitis without evidence for organizing fluid collection or perforation. 2. Hepatic steatosis. 3. Fat-containing umbilical hernia. 4. Nonobstructing right renal calculus. 5. Severe degeneration changes of the hips. [facility], , 12/31/2024 9:05 PM
[2024-12-31 21:16] VITALS: BP 133/88; PULSE 109; TEMP 100.6
[2024-12-31] MEDS: MORPHINE SULFATE 2 MG/ML SYRINGE IVP ONE (21:19)
[2024-12-31] MEDS: IBUPROFEN 800 MG TAB PO STA (21:19)
[2024-12-31] MEDS: AMOXIC-POT CLAV 875-125MG 1 EACH TAB PO STA (21:41)
== END 2024-12-31 21:49 | disposition home or self-care (01) ==
LOC: EC 19:04
DX: K57.32 Diverticulitis of large intestine without perforation or abscess without bleeding (principal)
CPT/HCPCS: 36415; 80053; 83605; 83690; 85025; 81001; 87636; 71046; 74177; 99284; 96374; J2270; Q9967

== ENCOUNTER → 2025-02-28 | Outpatient (CLI) | payer BC ==
--- NOTE | 2025-02-28 07:38 | MM ---
Reason for Exam: Screening (asymptomatic). Last mammogram was performed 2 year(s) and 3 month(s) ago. Patient History: Menarche at age 13. First Full-Term at age 25. Postmenopausal. Risk Values: Corin 5 year model risk: 1.0%. NCI Lifetime model risk: 7.7%. Prior Study Comparison: 12/16/2018 Right Diagnostic Mammogram, [facility]. 12/04/2022 Bilateral MG screening mammo w CAD, [facility]. 12/09/2022 Left MG work up mamm w CAD LT, [facility]. Tissue Density: There are scattered areas of fibroglandular density. Findings: Analyzed By CAD. There is no suspicious group of microcalcifications or new suspicious mass in either breast. Overall Assessment: Negative, BI-RAD 1 Management: Screening Mammogram of both breasts in 1 year. . Patient should continue monthly self-breast exams. A clinical breast exam by your physician is recommended on an annual basis. This exam should not preclude additional follow-up of suspicious palpable abnormalities. Note on Corin scores and lifetime risk: 1. A Corin score greater than 3% is considered moderate risk. If this is the case, consider specialist referral to assess eligibility for a risk reducing agent. 2. If overall lifetime risk for the development of breast cancer is 20% or higher, the patient may qualify for future screening with alternating mammogram and breast MRI. [facility], , 02/28/2025 7:35 AM. Electronically signed and approved by: Barry Arreguin M.D.
== END | disposition home or self-care (01) ==
LOC: RADMAMWWP 06:55
PROVIDERS: ATTEND Family Medicine
DX: Z12.31 Encounter for screening mammogram for malignant neoplasm of breast (principal); R92.323 Mammographic fibroglandular density, bilateral breasts; Z78.0 Asymptomatic menopausal state
CPT/HCPCS: 77067

== ENCOUNTER 2025-03-14 10:18 | Day surgery (SDC) | payer BC ==
[2025-03-14 10:46] VITALS: TEMP 97.2
[2025-03-14] MEDS: IV FLUID CONTINUATION 1,000 ML IV ONE (10:46)
[2025-03-14] MEDS: LACTATED RINGERS 1,000 ML IV SCH (11:01)
[2025-03-14] MEDS ORDERED: PROPOFOL 10 MG/ML 20 ML VIAL IV ONE (12:02)
--- NOTE | 2025-03-14 12:15 | P.PCN ---
Date of Procedure: 03/14/25 Procedure(s) Performed: BRIEF HISTORY: Patient is a 54-year-old pleasant white female scheduled for an elective colonoscopy as a part of evaluation of acute recurrent diverticulitis for the last 2 years duration. Her last episode was 2 months ago and was treated with antibiotics and now doing well. PROCEDURE PERFORMED: Colonoscopy with snare polypectomy. PREOPERATIVE DIAGNOSIS: Acute recurrent diverticulitis. IV sedation per Anesthesia. PROCEDURE: After informed consent was obtained, the patient, was brought into the endoscopy unit. IV sedation was administered by Anesthesia under continuous monitoring. Digital rectal examination was normal. Initially the Olympus CF-160 flexible video colonoscope was then inserted in the rectum, gradually advanced into the cecum without any difficulty. Careful examination was performed as the scope was gradually being withdrawn. Ileocecal valve and the appendiceal orifice were visualized and appeared normal. Prep was excellent. Mucosa of the cecum appeared normal. The ascending colon there was a 8 mm polyp that was removed by cold snare polypectomy. Rest of the, ascending colon, transverse colon, descending colon, sigmoid colon, and rectum appeared normal. Scattered sigmoid diverticulosis. Retroflexion was performed in the rectum and no lesions were seen. The patient tolerated the procedure well. IMPRESSION: 7 mm broad-based ascending colon polyp status post cold snare polypectomy Scattered sigmoid diverticulosis RECOMMENDATIONS: Findings of this examination were discussed with the patient as well as her family.. She was advised to follow-up with the biopsy results. If the biopsy reveals adenoma, she can have repeat colonoscopy in 5 years.
[2025-03-14] MEDS ORDERED: hydrALAZINE HCL 20 MG/ML 1 ML VIAL IM STA (12:44)
[2025-03-14] MEDS: hydrALAZINE HCL 20 MG/ML 1 ML VIAL IVP STA (12:53)
[2025-03-14 13:11] VITALS: BP 165/89; PULSE 94; RESP 16
== END 2025-03-14 13:23 | disposition home or self-care (01) ==
LOC: ORWHC2ENDO 10:18
PROVIDERS: ATTEND Internal Medicine Gastroenterology
DX: D12.2 Benign neoplasm of ascending colon (principal); K57.30 Diverticulosis of large intestine without perforation or abscess without bleeding; I10 Essential (primary) hypertension; J45.909 Unspecified asthma, uncomplicated; G47.33 Obstructive sleep apnea (adult) (pediatric); K21.9 Gastro-esophageal reflux disease without esophagitis; F41.9 Anxiety disorder, unspecified; Z99.89 Dependence on other enabling machines and devices; Z79.51 Long term (current) use of inhaled steroids; Z79.899 Other long term (current) drug therapy
CPT/HCPCS: 88305; 45385; J0360; J2704